=== PATIENT | male | born 1990 | race Caucasian/White ===

== ENCOUNTER 2018-03-30 10:05 | Emergency (ER) | payer OTHER, MEDICAID, SELFPAY ==
[2018-03-30 10:27] VITALS: BP 124/62; PULSE 88; RESP 12; TEMP 36.7; O2SAT 100
--- NOTE | 2018-03-30 10:42 | ED_ITS ---
HPI - Skin/Abscess/Foreign Bdy General Chief complaint: Skin/Abscess/Foreign Body Stated complaint: dr sent for possible infection in femoral artery Time Seen by Provider: 03/30/18 10:15 Source: patient Mode of arrival: ambulatory Limitations: no limitations History of Present Illness HPI narrative: Patient is a 27-year-old male who admits to being a IV drug abuser here for evaluation of a possible infection in his right groin. Patient states that he has been trying to quit heroin is also on methadone. He does state he uses daily heroin. He states that his last use was last evening. His last use of meth was yesterday. His last use of marijuana was this morning. He states that he has had skin infections in the past. He has been injecting himself in his right groin. The injection done overnight was in his left groin. Has pain in his right groin. No fevers. No urinary symptoms. Patient also states that he has been on Bactrim given to him by the methadone clinic. He states that when he takes Bactrim his genitals become very irritated. He states that he has been wearing gym shorts and now his genitals are very ? irritated ? Related Data Previous Rx's Medication Instructions Recorded alprazolam 1 mg PO TID #15 tab 04/27/16 clindamycin HCl 300 mg PO QID 10 Days #40 cap 03/30/18 quetiapine [Seroquel] 100 mg PO .QHS 10 Days tab 03/30/18 Allergies Allergy/AdvReac Type Severity Reaction Status Date / Time Sulfa (Sulfonamide Allergy Unknown Verified 03/30/18 10:47 Antibiotics) Review of Systems Constitutional Denies fatigue and Denies fever(s) Eyes Denies itchy eyes ENT Ears, Nose, Mouth, and Throat: Denies dizziness, Denies lip swelling and Denies throat swelling Cardiovascular Denies chest pain, Denies syncope and Denies dyspnea Respiratory Denies dyspnea Gastrointestinal Gastrointestinal: Denies abdominal pain, Denies diarrhea, Denies nausea and Denies vomiting Genitourinary Reports genital pain, Denies flank pain, Denies scrotal swelling and Denies testicular pain Musculoskeletal Denies myalgias and Denies arthralgias Integumentary/Breasts Comments: Redness and swelling to his right groin Redness to his left groin Neurologic Reports system reviewed and no additional complaints, except as docu, Denies confusion, Denies dizziness and Denies syncope Psychiatric Denies confusion Endocrine Denies fatigue Hematologic/Lymphatic Denies easy bleeding and Denies easy bruising Allergic/Immunologic Denies urticaria, Denies itchy eyes, Denies lip swelling and Denies throat swelling Exam Initial Vital Signs Initial Vital Signs: Vital Signs Temperature 98.1 F 03/30/18 10:27 Pulse Rate 88 03/30/18 10:27 Respiratory Rate 12 03/30/18 10:27 Blood Pressure 124/62 H 03/30/18 10:27 Pulse Oximetry 100 03/30/18 10:27 Const General: cooperative, well developed, well groomed and No acute distress Orientation: alert, awake and oriented x3 HENMT Head: normal to inspection, normocephalic and atraumatic Ears: hearing grossly normal bilaterally Nose: external nose normal Teeth and gingiva: other (Poor dentition, missing multiple teeth, consistent with meth use) Neck Other: Well-healed surgical scar anterior neck which she states was from a prior infection needing multiple operations Resp Effort & Inspection: normal respiratory effort and able to speak in complete sentences GI Inspection: normal to inspection and non-distended Palpation: soft, No firm and No tender Other: Patient with multiple superficial ulcerations on his genitals and glans sparing the testicles. Back/Spine/Pelvis Back: No CVA tenderness Skin Other: Patient with multiple skin lesions on all 4 extremities had multiple stages of healing consistent with his IV drug abuse. Patient has a 3 cm red swelling area of induration and erythema on his right groin. Has ecchymosis extending down the leg and also up to his waist line. No crepitus felt in the area Patient also with a 3 cm area of ecchymosis in his left groin where he injected himself overnight. Neuro General: alert, awake and oriented x3 Extrem General: normal to inspection and capillary refill normal Course Orders Ordered: ED Orders 03/30/18 10:42 CT pelvis w con Stat 03/30/18 11:33 Blood Culture Stat C-Reactive Protein Quant Stat Complete Blood Count AUTO DIFF Stat Comprehensive Metabolic Panel Stat Erythrocyte Sedimentation Rate Stat Lactate (Lactic Acid) Stat Lipase Stat Procalcitonin Stat Clindamycin Phosphate (Cleocin) 900 mg in 50 mls @ 50 mls/hr IV NOW ONE Stop: 03/30/18 13:50 Last Admin: 03/30/18 13:01 Dose: 50 mls/hr Discontinued Medications Sodium Chloride (Normal Saline 0.9%) 1,000 mls @ 1,000 mls/hr IV BOLUS ONE Stop: 03/30/18 11:41 Last Admin: 03/30/18 11:39 Dose: 1,000 mls/hr Ondansetron HCl (Zofran) 4 mg IV NOW ONE Stop: 03/30/18 11:38 Last Admin: 03/30/18 11:39 Dose: 4 mg Vital Signs - 8 hr 03/30/18 10:27 03/30/18 12:55 03/30/18 13:22 Temperature 98.1 F Pulse Rate 88 60 59 L Respiratory Rate 12 16 16 Blood Pressure 124/62 H Blood Pressure [Right Arm] 121/50 H 100/86 H Pulse Oximetry 100 98 98 MDM - Skin/Abscess/Foreign Bdy Lab Data Attestation: I reviewed the patient's lab results. Result diagrams: 03/30/18 11:33 03/30/18 11:33 Lab Results 03/30/18 03/30/18 03/30/18 Range/Units 11:33 11:33 11:33 WBC 9.0 (4.5-11.0) X10^3/uL RBC 4.70 (4.5-5.9) X10^6/uL Hgb 11.6 L (13.5-17.5) g/dL Hct 35.4 L (41-53) % MCV 75.5 L (80-100) fL MCH 24.6 L (26-34) PG MCHC 32.6 (30-36) % RDW 16.9 H (11.6-14.8) % Plt Count 305 (150-400) X10^3/uL Neut % (Auto) 77.6 H (50-75) % Lymph % (Auto) 10.9 L (25-40) % Sac % (Auto) 6.6 (3-14) % Eos % (Auto) 4.2 H (2-4) % Baso % (Auto) 0.7 (0-2) % Neut # (Auto) 7000 H (1964-9953) /uL ESR 29 H (0-15) MM/HR Sodium 142 (137-145) mmol/L Potassium 3.9 (3.4-5.1) mmol/L Chloride 100 (98-107) mmol/L Carbon Dioxide 27 (22-32) mmol/L BUN 18 (9-20) mg/dL Creatinine 0.90 (0.66-1.25) mg/dL Estimated GFR > 60.0 (>60) mL/min BUN/Creatinine Ratio 20.0 (6-22) Glucose 102 H (70-100) mg/dL Lactate (0.7-2.1) mmol/L Calcium 9.2 (8.4-10.2) mg/dL Total Bilirubin 0.8 (0.2-1.3) mg/dL AST 22 (17-59) IU/L ALT 21 (21-72) IU/L Alkaline Phosphatase 89 (38-126) U/L C-Reactive Protein 3.2 H (<1.0) mg/dL Total Protein 7.7 (6.3-8.2) g/dL Albumin 4.5 (3.5-5.0) g/dL Globulin 3.2 (1.7-4.1) g/dL Albumin/Globulin Ratio 1.4 (1.0-2.8) Lipase 38 (23-300) U/L Procalcitonin 0.22 (<0.5) ng/mL 03/30/18 Range/Units 11:33 WBC (4.5-11.0) X10^3/uL RBC (4.5-5.9) X10^6/uL Hgb (13.5-17.5) g/dL Hct (41-53) % MCV (80-100) fL MCH (26-34) PG MCHC (30-36) % RDW (11.6-14.8) % Plt Count (150-400) X10^3/uL Neut % (Auto) (50-75) % Lymph % (Auto) (25-40) % Sac % (Auto) (3-14) % Eos % (Auto) (2-4) % Baso % (Auto) (0-2) % Neut # (Auto) (5754-3596) /uL ESR (0-15) MM/HR Sodium (137-145) mmol/L Potassium (3.4-5.1) mmol/L Chloride (98-107) mmol/L Carbon Dioxide (22-32) mmol/L BUN (9-20) mg/dL Creatinine (0.66-1.25) mg/dL Estimated GFR (>60) mL/min BUN/Creatinine Ratio (6-22) Glucose (70-100) mg/dL Lactate 0.7 (0.7-2.1) mmol/L Calcium (8.4-10.2) mg/dL Total Bilirubin (0.2-1.3) mg/dL AST (17-59) IU/L ALT (21-72) IU/L Alkaline Phosphatase (38-126) U/L C-Reactive Protein (<1.0) mg/dL Total Protein (6.3-8.2) g/dL Albumin (3.5-5.0) g/dL Globulin (1.7-4.1) g/dL Albumin/Globulin Ratio (1.0-2.8) Lipase (23-300) U/L Procalcitonin (<0.5) ng/mL Imaging Data CT pelvis: Radiologist's impression: PROCEDURE: CT PELVIS W CON INDICATIONS: Right femoral infection concern for deep space infection TECHNIQUE: After the administration of intravenous contrast, 5 mm thick sections acquired from the iliac crests to the symphysis. 5 mm coronal and sagittal reformats were acquired. For radiation dose reduction, the following was used: automated exposure control, adjustment of mA and/or kV according to patient size. COMPARISON: [facility], CT, CT ABD PELVIS WO CON, 04/05/2016, 21:56. FINDINGS: Image quality: Excellent. Peritoneum and bowel: Bowel loops demonstrate normal wall thickness and caliber. No free fluid or air. Genitourinary: Bladder wall thickness is normal. Nodes and vessels: No iliac, pelvic, or inguinal adenopathy by size criteria. Iliac vessels demonstrate normal size and enhancement. Bones: No suspicious bony lesions. Miscellaneous: There is a tiny fat containing umbilical hernia. No inguinal hernias. There is skin thickening and subcutaneous stranding in the proximal right thigh consistent with cellulitis. Small right inguinal lymph nodes are likely reactive. There is tiny complex fluid collection in the right inguinal region measuring 1.3 x 3.4 cm, suspicious for phlegmon or small early abscess. No drainable fluid collection. IMPRESSION: 1. Right anterior thigh skin thickening and subcutaneous stranding consistent with cellulitis. 2. Small 1.3 x 2.4 cm complex fluid collection suspicious for phlegmon or small early abscess. No drainable fluid collection. 3. Reactive right internal lymph nodes are noted. Dictated by: Cortez Junior M.D. on 03/30/2018 at 12:36 MDM Narrative Medical decision making narrative: 27-year-old male admits to IV drug abuse with history and physical exam consistent with right-sided groin cellulitis/ abscess. Patient stop the Bactrim that he was placed on by the methadone clinic secondary to the changes in his genitals. These do not appear to be Marquez-Dimas or TEN. CT scan does not show any drainable abscess. Patient was given IV clindamycin here in the emergency department. Will send home with a prescription for clindamycin. Also refilled his nighttime sleep medicine. He does not have a primary doctor here in the area. He was informed that he needed to find a primary doctor. He was given return precautions. He expressed understanding and agreement with plan. Discharge Plan Departure Patient Disposition: Home, Self-Care Clinical Impression: Cellulitis, Drug abuse and dependence Instructions: DI for Cellulitis -- Adult, DI for Drug Abuse and Drug Addiction Activity Restrictions/Additional Instructions: Take all of the medications as instructed. I recommend that you may contact with a primary doctor here in the area for continued follow-up. I encourage you to continue to try to stop the drug use/abuse. Continue seeing the methadone clinic. Return to the emergency department for any new symptoms, worsening symptoms, worsening redness, worsening pain, or any other concerning symptoms Prescriptions: New clindamycin HCl 300 mg capsule 300 mg PO QID 10 Days Qty: 40 RF: 0 quetiapine [Seroquel] 100 mg tablet 100 mg PO .QHS 10 Days RF: 0 No Action alprazolam 1 MG tablet 1 mg PO TID Qty: 15 RF: 0
[2018-03-30] MEDS: ONDANSETRON 4 MG/2 ML INJ IV (11:39)
[2018-03-30] MEDS: SODIUM CHLORIDE 0.9% 1,000 ML 1000 ML IV (11:39)
[2018-03-30 11:43] LABS: Add Manual Diff / Slide Review NO; Basophils Percent Auto 0.7 % (0-2); Eosinophils Percent Auto 4.2 % (2-4); Hematocrit 35.4 % (41-53); Hemoglobin 11.6 g/dL (13.5-17.5); Lymphocytes Percent Auto 10.9 % (25-40); Mean Corpuscular HGB Conc 32.6 % (30-36); Mean Corpuscular Hemoglobin 24.6 PG (26-34); Mean Corpuscular Volume 75.5 fL (80-100); Monocytes Percent Auto 6.6 % (3-14); Neutrophils Absolute Auto 7000 /uL (3000-5900); Neutrophils Percent Auto 77.6 % (50-75); Platelet Count 305 X10^3/uL (150-400); Red Cell Distribution Width 16.9 % (11.6-14.8)
[2018-03-30 12:11] LABS: Lactate (Lactic Acid) 0.7 mmol/L (0.7-2.1)
[2018-03-30 12:13] LABS: Alanine Aminotransferase 21 IU/L (21-72); Albumin 4.5 g/dL (3.5-5.0); Albumin Globulin Ratio 1.4 (1.0-2.8); Alkaline Phosphatase 89 U/L (38-126); Aspartate Aminotransferase 22 IU/L (17-59); Bilirubin Total 0.8 mg/dL (0.2-1.3); Blood Urea Nitrogen 18 mg/dL (9-20); C-Reactive Protein Quant 3.2 mg/dL (<1.0); Calcium 9.2 mg/dL (8.4-10.2); Carbon Dioxide 27 mmol/L (22-32); Chloride 100 mmol/L (98-107); Estimated Glomerular Filt Rate > 60.0 mL/min (>60); Globulin 3.2 g/dL (1.7-4.1); Glucose 102 mg/dL (70-100); HEMOLYSIS < 15 (0-50); Lipase 38 U/L (23-300); Potassium 3.9 mmol/L (3.4-5.1); Sodium 142 mmol/L (137-145); Total Protein 7.7 g/dL (6.3-8.2)
[2018-03-30 12:26] LABS: Procalcitonin 0.22 ng/mL (<0.5)
[2018-03-30 12:46] LABS: Erythrocyte Sedimentation Rate 29 MM/HR (0-15)
[2018-03-30 12:55] VITALS: BP 121/50; PULSE 60; RESP 16; O2SAT 98
[2018-03-30] MEDS: CLINDAMYCIN 900 MG/50 ML PIGGYBACK 50 MG IV (13:01)
[2018-03-30 13:22] VITALS: BP 100/86; PULSE 59; RESP 16; O2SAT 98
[2018-03-30] MEDS: CLINDAMYCIN 150 MG CAPSULE 300 MG PO (14:18)
--- NOTE | 2018-03-30 14:20 | PC.NURSE ---
pt refusing to finish iv medications. dr. briseno aware and orders rec'd.
== END 2018-03-30 14:25 | disposition home or self-care (01) ==
PROVIDERS: Emergency Provider Emergency Medicine
DX: L03.314 Cellulitis of groin (principal); F11.10 Opioid abuse, uncomplicated
CPT/HCPCS: 36591; 72193; 80053; 83605; 83690; 84145; 85025; 85651; 86140; 87040; 96361; 96374; 96375; 99283; 99285; J2405; Q9967

== ENCOUNTER → 2018-06-05 13:49 | Outpatient (CLI) | payer OTHER, MEDICAID, SELFPAY ==
[2018-06-05 15:08] LABS: Add Manual Diff / Slide Review NO; Basophils Percent Auto 0.5 % (0-2); Eosinophils Percent Auto 5.7 % (2-4); Hematocrit 36.8 % (41-53); Hemoglobin 12.1 g/dL (13.5-17.5); Lymphocytes Percent Auto 13.7 % (25-40); Mean Corpuscular HGB Conc 32.8 % (30-36); Mean Corpuscular Hemoglobin 25.6 PG (26-34); Mean Corpuscular Volume 77.9 fL (80-100); Monocytes Percent Auto 4.9 % (3-14); Neutrophils Absolute Auto 6000 /uL (3000-5900); Neutrophils Percent Auto 75.2 % (50-75); Platelet Count 310 X10^3/uL (150-400); Red Blood Cell Count 4.73 X10^6/uL (4.5-5.9); Red Cell Distribution Width 17.5 % (11.6-14.8)
[2018-06-05 15:27] LABS: Alanine Aminotransferase 13 IU/L (21-72); Albumin 4.6 g/dL (3.5-5.0); Albumin Globulin Ratio 1.4 (1.0-2.8); Alkaline Phosphatase 80 U/L (38-126); Aspartate Aminotransferase 18 IU/L (17-59); Bilirubin Total 0.5 mg/dL (0.2-1.3); Blood Urea Nitrogen 18 mg/dL (9-20); Calcium 9.1 mg/dL (8.4-10.2); Carbon Dioxide 31 mmol/L (22-32); Chloride 104 mmol/L (98-107); Estimated Glomerular Filt Rate > 60.0 mL/min (>60); Globulin 3.3 g/dL (1.7-4.1); Glucose 81 mg/dL (70-100); HEMOLYSIS < 15 (0-50); Sodium 147 mmol/L (137-145); Total Protein 7.9 g/dL (6.3-8.2)
[2018-06-05 17:06] LABS: Hepatitis B Surface Antigen NEGATIVE s/c (NEGATIVE)
[2018-06-05 17:07] LABS: Hep C Virus Ab w/Reflex Quant REACTIVE s/c (NEGATIVE)
[2018-06-08 15:21] LABS: Hepatitis A Ab Total Nonreactive (Nonreactive); Hepatitis B Core IgM Nonreactive (Nonreactive)
[2018-06-08 15:23] LABS: Hepatitis B Surf Ab Qualitativ Nonreactive (Nonreactive)
[2018-06-11 11:52] LABS: Rapid Plasma Reagin NON-REACTIVE
== END ==
PROVIDERS: Visit Provider Physician Assistant Medical
DX: Z11.3 Encounter for screening for infections with a predominantly sexual mode of transmission (principal); Z11.51 Encounter for screening for human papillomavirus (HPV); Z13.228 Encounter for screening for other metabolic disorders
CPT/HCPCS: 36415; 80053; 85025; 86592; 86705; 86706; 86803; 87340; 87522

== ENCOUNTER 2018-08-20 09:55 | Emergency (ER) | payer OTHER, MEDICAID, SELFPAY ==
[2018-08-20 10:00] VITALS: BP 107/62; PULSE 64; RESP 20; TEMP 36.4; O2SAT 97; BMI 23.0
--- NOTE | 2018-08-20 11:30 | PC.NURSE ---
pt given dental block by provider pt appears in no acute distress at this time.
[2018-08-20] MEDS: AMOXICILLIN 250 MG CAPSULE 500 MG PO (11:38)
--- NOTE | 2018-08-20 11:40 | ED_ITS ---
HPI - Dental/Oral General Chief complaint: Dental/Oral Stated complaint: DENTAL BLOCK, WAS SENT OEVER BY Time Seen by Provider: 08/20/18 10:08 Source: patient Mode of arrival: ambulatory Limitations: no limitations History of Present Illness HPI Narrative: Patient complains of right mandibular dental pain the last several days. He has severe decay of his right mandibular teeth, with fracture. He states he is scheduled to see a dentist in [place] to have the teeth extracted. Patient states that the pain is electrical-feeling, shooting pain in the area of the affected teeth. Patient denies fever or facial swelling. Patient is in a drug rehab facility, and does not want any oral narcotics. He is requesting a dental block and antibiotics if possible. Severity scale (1-10): 9 Relieving factors: nothing Exacerbating factors: chewing, cold and heat Related Data Previous Rx's Medication Instructions Recorded amoxicillin 500 mg PO TID #20 cap 08/20/18 Review of Systems Review of Systems All systems reviewed & are unremarkable except as noted in HPI and below Constitutional Denies chills, Denies fever(s), Denies lethargy and Denies weakness Eyes Denies change in vision, Denies eye discharge, Denies irritation and Denies loss of vision ENT Ears, Nose, Mouth, and Throat: Denies change in voice, Reports dental pain, Denies neck pain and Denies sore throat Cardiovascular Denies chest pain, Denies irregular heart rhythm, Denies lightheadedness, Denies palpitations, Denies dyspnea, Denies dyspnea on exertion and Denies orthopnea Respiratory Denies cough, Denies dyspnea, Denies dyspnea on exertion and Denies wheezing Gastrointestinal Gastrointestinal: Denies abdominal pain, Denies change in bowel habits, Denies diarrhea, Denies nausea and Denies vomiting Genitourinary Denies hematuria, Denies flank pain, Denies urinary incontinence and Denies urinary urgency Musculoskeletal Denies neck pain Integumentary/Breasts Denies pruritus, Denies erythema, Denies rash and Denies wounds Neurologic Denies confusion, Denies loss of vision and Denies weakness Psychiatric Denies anxiety, Denies confusion, Denies depression, Denies homicidal ideation and Denies suicidal ideation Endocrine Denies palpitations Hematologic/Lymphatic Denies easy bruising Allergic/Immunologic Denies wheezing [facility] Medical History Dental caries (Acute) Polysubstance abuse (Acute) Surgical History No pertinent past surgical history (Acute) Social History Smoking Status: Current every day smoker substance use type: former substance user Exam Initial Vital Signs Initial Vital Signs: Vital Signs Temperature 97.6 F 08/20/18 10:00 Pulse Rate 64 08/20/18 10:00 Respiratory Rate 20 08/20/18 10:00 Blood Pressure 107/62 08/20/18 10:00 Pulse Oximetry 97 08/20/18 10:00 Const General: cooperative and well developed Nutritional Appearance: well nourished Orientation: alert, awake, oriented x3 and not confused HENMT Head: normocephalic and atraumatic Ears: external ears normal Nose: external nose normal and No nasal discharge Face and sinus: face symmetric and No dry mucous membranes Mouth: oral mucosae normal and moist mucous membranes Teeth and gingiva: abnormal dentition ( patient has severely decayed teeth throughout his entire mouth, with some teeth missing. He has multiple fractured and decayed teeth in the right mandibular area. No swelling of the gingiva or face.) Eyes General: appearance normal, both eyes and all related structures Eyelids: eyelids normal Conjunctivae: conjunctivae normal Sclera: sclerae normal Pupils: PERRL EOM: EOM intact bilaterally Neck Neck: normal visual inspection, trachea midline, No lymphadenopathy, No midline deformity and No JVD Lymphatic: No lymphedema Chest Chest: normal inspection of the chest Resp Effort & Inspection: normal respiratory effort, able to speak in complete sentences, no respiratory distress and no use of accessory muscles Auscultation: clear to auscultation bilaterally, no rales, no rhonchi and no wheezes Cardio Rate: regular rate Rhythm: regular rhythm Heart Sounds: no click, no gallops, no murmurs and no rubs Pulses: normal peripheral pulses GI Inspection: non-distended Palpation: soft, no hepatosplenomegaly, No guarding, No pulsatile mass and No tender Auscultation: normal bowel sounds Back/Spine/Pelvis Back: No CVA tenderness Cervical Spine: cervical ROM normal and No pain with cervical ROM Thoracic/Lumbar Spine: thoracic and lumbar spine normal to inspection Skin General: no rashes or lesions noted, No jaundice and No petechiae Neuro General: alert, oriented x3, gait normal and no focal motor deficits Speech: speech normal Extrem General: full ROM, no clubbing, cyanosis or edema, no pedal edema and no calf tenderness Psych Appearance: well kempt Mental Status: mental status grossly normal Attitude: cooperative Thought Content: normal and suicidality Judgment: judgment good Procedures Nerve Block Nerve Block 1: Local Anesthetic: bupivacaine 0.5% Side: right Intraoral Nerve Block: inferior alveolar Procedure Successful: Yes Patient Tolerated Procedure: Well Complications: none Course Course Narrative: Patient was given a dental block and started on amoxicillin. I have advised him to follow up, as planned, with his dentist. Orders Ordered: Discontinued Medications Amoxicillin (Trimox) 500 mg PO NOW ONE Stop: 08/20/18 11:35 Last Admin: 08/20/18 11:38 Dose: 500 mg Vital Signs - 8 hr 08/20/18 10:00 Temperature 97.6 F Pulse Rate 64 Respiratory Rate 20 Blood Pressure 107/62 Pulse Oximetry 97 [facility] - Dental/Oral Medical Records Attestation: I reviewed the patient's medical records. Discharge Plan Departure Patient Disposition: Home Clinical Impression: Toothache, Dental caries Discharge Date/Time: 08/20/18 11:44 Instructions: DI for Dental Pain Prescriptions: New amoxicillin 500 mg capsule 500 mg PO TID Qty: 20 RF: 0
[2018-08-20 11:43] VITALS: BP 117/61; PULSE 70; RESP 20; TEMP 35.9; O2SAT 99
== END 2018-08-20 11:44 | disposition home or self-care (01) ==
PROVIDERS: Emergency Provider Emergency Medicine
DX: K08.89 Other specified disorders of teeth and supporting structures (principal); K02.9 Dental caries, unspecified
CPT/HCPCS: 99282; 99283

== ENCOUNTER 2018-09-09 10:00 | Emergency (ER) | payer OTHER, MEDICAID, SELFPAY ==
[2018-09-09 10:08] VITALS: BP 108/57; PULSE 58; RESP 17; TEMP 36.6; O2SAT 100
--- NOTE | 2018-09-09 10:26 | ED_ITS ---
HPI - Dental/Oral General Chief complaint: Dental/Oral Stated complaint: TOOTH INFECTION Time Seen by Provider: 09/09/18 10:04 Source: patient Mode of arrival: ambulatory Limitations: no limitations History of Present Illness HPI Narrative: 28-year-old male, current smoker presents with chief complaint lower dental pain which is currently being pursue for surgical treatment at the [facility] oral surgery clinic. He has widespread poor dentition and presents to us an effort to receive another dental block to avoid the use of narcotics. He denies any facial swelling nor fever or chills. He is currently taking Kegiancarlo LEE Complaint: tooth pain 2 1. Onset (ago): week(s) Duration: constant Severity: moderate Relieving factors: NSAIDs Exacerbating factors: chewing Context: history of dental caries Treatment prior to arrival: none Related Data Home Medications Medication Instructions Recorded Confirmed cephalexin 500 mg PO BID 09/09/18 09/09/18 Previous Rx's Medication Instructions Recorded quetiapine [Seroquel] 100 mg PO ONCE HS #7 tab 09/09/18 Allergies Allergy/AdvReac Type Severity Reaction Status Date / Time Sulfa (Sulfonamide Allergy Unknown Verified 09/09/18 10:27 Antibiotics) Review of Systems Review of Systems All systems reviewed & are unremarkable except as noted in HPI and below Constitutional Denies chills, Denies fever(s), Denies lethargy and Denies weakness Eyes Denies change in vision, Denies eye discharge, Denies irritation and Denies loss of vision ENT Ears, Nose, Mouth, and Throat: Denies change in voice, Reports dental pain, Denies neck pain and Denies sore throat Cardiovascular Denies chest pain, Denies irregular heart rhythm, Denies lightheadedness, Denies palpitations, Denies dyspnea, Denies dyspnea on exertion and Denies orthopnea Respiratory Denies cough, Denies dyspnea, Denies dyspnea on exertion and Denies wheezing Gastrointestinal Gastrointestinal: Denies abdominal pain, Denies change in bowel habits, Denies diarrhea, Denies nausea and Denies vomiting Genitourinary Denies hematuria, Denies flank pain, Denies urinary incontinence and Denies urinary urgency Musculoskeletal Denies neck pain Integumentary/Breasts Denies pruritus, Denies erythema, Denies rash and Denies wounds Neurologic Denies confusion, Denies loss of vision and Denies weakness Psychiatric Denies anxiety, Denies confusion, Denies depression, Denies homicidal ideation and Denies suicidal ideation Endocrine Denies palpitations Hematologic/Lymphatic Denies easy bruising Allergic/Immunologic Denies wheezing COUNT INCLUDES THE [facility] Medical History Polysubstance abuse (Acute) Dental caries (Acute) Surgical History No pertinent past surgical history (Acute) Social History Smoking Status: Current every day smoker substance use type: former substance user Exam Narrative Exam Narrative: GEN: AOx3 and in mild distress, holding his R jaw EYES: Pupils are equal, round, and reactive to light and accommodation. Extraoccular muscles are intact bilaterally. There is no subconjunctival hemorrhage or exudate. DENTAL: Very poor widespread dentition, multiple dental caries and eroded teeth noted. No swelling or suggestion of abscess noted CHEST: Lungs are clear to auscultation bilaterally and free of wheezes, rales, or rhonchi. Heart rate is regular rhythm, there are no murmurs, clicks, rubs, or gallops. There is no chest wall tenderness. ABD: Abdomen is soft and nontender. There is no guarding or rebound. Bowel sounds are normal in all 4 quadrants. There is no mass or organomegaly. EXT: Full painless ROM of all extremities with no loss of sensation or strength. SKIN: Warm, pink, and dry. No erythema or rash Initial Vital Signs Initial Vital Signs: Vital Signs Temperature 97.8 F 09/09/18 10:08 Pulse Rate 58 L 09/09/18 10:08 Respiratory Rate 17 09/09/18 10:08 Blood Pressure 108/57 L 09/09/18 10:08 Pulse Oximetry 100 09/09/18 10:08 Procedures Nerve Block Nerve Block 1: Time out performed: Yes Local Anesthetic: lidocaine 1% and bupivacaine 0.5% Amount of anesthesia used (mL): 6 Side: right Intraoral Nerve Block: inferior alveolar Procedure Successful: Yes Patient Tolerated Procedure: Well Course Consultations Consultation #1: Dental has referred him to Oral Surgery, they have a backlog of patients. But did attempt to call the patient on 08/25 and left a message encouraging him to reach out to their airport refueling handler at [phone] Vital Signs - 8 hr 09/09/18 10:08 Temperature 97.8 F Pulse Rate 58 L Respiratory Rate 17 Blood Pressure 108/57 L Pulse Oximetry 100 Discharge Plan Departure Patient Disposition: Home Clinical Impression: Chronic dental pain Discharge Date/Time: 09/09/18 10:36 Interventions: ED Discharge Assessment Last Done: 09/09/18 10:35 Instructions: DI for Dental Pain Activity Restrictions/Additional Instructions: *You have been diagnosed with [ chronic dental pain ] *What to do: *Continue to take medications as directed *Follow up with your primary care provider in 2-3 days, call for an appointment. Let them know you were seen in the Emergency Department and that we ask that you be seen in follow up. I've given you contact for Dr. Winters whom is a local Oral Maxiollofacial Surgeon that may be able to help. I've been on the phone on hold with Dental, but have no new info yet. *Return to ER if you should have any new, worsening or concerning symptoms such as facial swelling, fever > 101F, or other bothersome symptoms Prescriptions: New quetiapine [Seroquel] 100 mg tablet 100 mg PO ONCE HS Qty: 7 RF: 0 No Action cephalexin 500 mg capsule 500 mg PO BID RF: 0 Referrals: Chalino Winters DMD [Physician] -
== END 2018-09-09 10:36 | disposition home or self-care (01) ==
PROVIDERS: Emergency Provider Emergency Medicine
DX: K08.89 Other specified disorders of teeth and supporting structures (principal); G89.29 Other chronic pain
CPT/HCPCS: 99282

== ENCOUNTER 2018-10-10 08:35 | Emergency (ER) | payer OTHER, MEDICAID, SELFPAY ==
[2018-10-10 08:40] VITALS: BP 156/84; PULSE 107; RESP 24; TEMP 37.4; O2SAT 98
--- NOTE | 2018-10-10 10:07 | ED_ITS ---
HPI - Skin/Abscess/Foreign Bdy General Chief complaint: Skin/Abscess/Foreign Body Stated complaint: ABCESS/INFECTION R FEMERAL ARTERY/MOUTH/JAW Time Seen by Provider: 10/10/18 09:26 Source: patient Mode of arrival: ambulatory Limitations: no limitations History of Present Illness HPI narrative: This is a 28-year-old male comes to the emergency department with complaint of abscess in his right groin. Patient states that he has been injecting IV drugs bilaterally for a long period of time. Last night sort of swelled up more and has become more painful and he is concerned about an abscess. He states that often he will get the skin looks a little necrotic and then eventually a wound will open up and it will drain pus. Patient states that he has also had a lot of dental issues. He is following with [facility] to try to be evaluated to have extensive dental work under anesthesia. He states that he continues to have significant caries he has been through 7 or 8 doses of antibiotics for them. And states that the pain continues to return. Patient is requesting a dental block for 1 particular area that hurts although he complains of pain throughout. He states he is on methadone, he has also been abusing recently despite being on the methadone. He denies any other medical history. He states the pain is pretty significant. Related Data Home Medications Medication Instructions Recorded Confirmed amoxicillin-pot clavulanate 1 tab PO BIDX10 10/10/18 10/10/18 amoxicillin-pot clavulanate 2 tab PO BIDX10 10/10/18 10/10/18 quetiapine [Seroquel] 100 mg PO BEDTIME 10/10/18 10/10/18 Previous Rx's Medication Instructions Recorded clindamycin HCl 300 mg PO QID #40 cap 10/10/18 diclofenac sodium [Voltaren] 2 gram TOP QID PRN #100 gram 10/10/18 Allergies Allergy/AdvReac Type Severity Reaction Status Date / Time Sulfa (Sulfonamide Allergy Unknown Verified 09/09/18 10:27 Antibiotics) Review of Systems ENT Ears, Nose, Mouth, and Throat: Reports system reviewed and no additional complaints, except as docu, Reports mouth pain and Reports other (Severe dental caries) Integumentary/Breasts Reports other (abscess right inguinal) [facility] Medical History Polysubstance abuse (Acute) Dental caries (Acute) Surgical History No pertinent past surgical history (Acute) Social History Smoking Status: Current every day smoker substance use type: IV drugs Exam Narrative Exam Narrative: GEN: Thin male, alert and oriented x 3, patient appears to be in mild distress. HEENT: Atraumatic, pupils are equal round reactive to light, extraocular movements are intact, nares are clear, TMs are clear with no fluid, there is no conjunctival pallor. Throat is clear without any exudates, erythema, tonsillar enlargement or uvular deviation, patient has severe dental caries affecting every tooth with multiple teeth that are not intact. There is no significant swelling of the gums. There is no fluctuant fluid collection. HEART: Regular rate and rhythm without murmur, clicks, rubs. LUNGS:Lungs clear to auscultation, no wheezes, rales, crackles, chest moves symmetrically ABD:bowel sounds normal, soft, non-tender, no guarding, rebound, rigidity, no masses noted, no hepatosplenomegaly :No CVA tenderness, patient has induration bilaterally in the inguinal creases although nontender on the left. On the right patient has tenderness. There is fullness and induration but no fluctuance. Patient does not have significant erythema but does have small area surrounding injection site which has some mild bruising. Patient has 2+ femoral pulses MSCL: Non-tender, no muscle atrophy, muscles strength 5/5 upper and lower extremities, full range of motion, normal gait NEURO:CN 2-12 intact, sensation normal, reflexes 2/4 upper and lower extremities. finger nose finger test normal, heel ca test normal, romberg normal Initial Vital Signs Initial Vital Signs: Vital Signs Temperature 99.4 F 10/10/18 08:40 Pulse Rate 107 H 10/10/18 08:40 Respiratory Rate 24 10/10/18 08:40 Blood Pressure 156/84 H 10/10/18 08:40 Pulse Oximetry 98 10/10/18 08:40 Procedures Nerve Block Nerve Block 1: Time out performed: Yes Local Anesthetic: lidocaine 1% and bupivacaine 0.25% Amount of anesthesia used (mL): 1.5 Side: right Intraoral Nerve Block: inferior alveolar Procedure Successful: Yes Patient Tolerated Procedure: Well Complications: none Additional Comments: Patient has improvement in pain with dental block. Course Vital Signs - 8 hr 10/10/18 08:40 Temperature 99.4 F Pulse Rate 107 H Respiratory Rate 24 Blood Pressure 156/84 H Pulse Oximetry 98 MDM - Skin/Abscess/Foreign Bdy Imaging Data Bedside US: My impression: On bedside ultrasound patient has swelling, sounding but no fluid collection noted. MDM Narrative Medical decision making narrative: Patient not given antibiotics for suspicion of early cellulitis secondary to IV drug abuse and potential abscess forming. No abscess is noted on ultrasound. Given rx for antibiotics are recommended to return if signs of forming abscess. No signs of vascular involvement on exam. I am able to visualize the site of injection also. He also has severe dental caries but is following with [facility]. Patient did have a dental block for the most painful area which was successful. Discharge Plan Departure Patient Disposition: Home Clinical Impression: Dental caries, Cellulitis of groin, right Discharge Date/Time: 10/10/18 10:27 Interventions: ED Discharge Assessment Last Done: 10/10/18 10:27 Instructions: DI for Skin Abscess Activity Restrictions/Additional Instructions: Follow-up in the next 3-5 days for recheck if symptoms are not improving. Continue warm compresses intermittently to the affected area. You may also use ice as needed. I would also recommend adding Tylenol 1000 mg every 8 hr and you can continue ibuprofen 600 mg every 6 hr together for additional pain relief. Take antibiotics until they are completely gone. Return to the ER for persistent fevers, rapidly worsening swelling, new weakness , numbness in your extremity, worsening redness, purulent discharge or other new or concerning symptoms. Also return if you're having any swelling of the back of his throat, tongue Um or difficulty breathing, stridor high-pitched wheezing. Prescriptions: New clindamycin HCl 300 mg capsule 300 mg PO QID Qty: 40 RF: 0 diclofenac sodium [Voltaren] 1 % gel 2 gram TOP QID PRN (Reason: pain) Qty: 100 RF: 0 No Action amoxicillin-pot clavulanate 875-125 mg tablet 1 tab PO BIDX10 RF: 0 amoxicillin-pot clavulanate 500-125 mg tablet 2 tab PO BIDX10 RF: 0 quetiapine [Seroquel] 100 mg tablet 100 mg PO BEDTIME RF: 0 Referrals: Vianey,Chalino, DMD [Physician] -
[2018-10-10 10:22] VITALS: BP 128/75; PULSE 76; RESP 20; O2SAT 98
== END 2018-10-10 10:27 | disposition home or self-care (01) ==
PROVIDERS: Emergency Provider Emergency Medicine
DX: L03.314 Cellulitis of groin (principal); K02.9 Dental caries, unspecified
CPT/HCPCS: 99282

== ENCOUNTER 2019-11-11 01:53 | Emergency (ER) | payer OTHER, MEDICAID, SELFPAY ==
[2019-11-11 02:27] VITALS: BP 128/63; PULSE 101; RESP 16; TEMP 36.9; O2SAT 98
--- NOTE | 2019-11-11 02:44 | DI.RAD.S_ITS ---
PROCEDURE: XR CHEST 1V INDICATIONS: altered mental status, periods of apnea TECHNIQUE: One view of the chest was acquired. COMPARISON: [facility], CR, XR CHEST 1 VIEW, 05/30/2019, 18:17. [facility], CR, XR CHEST 1 VIEW, 09/16/2019, 21:11. FINDINGS: Surgical changes and devices: None. Lungs and pleura: Mildly diminished lung volumes bilaterally. Minimal streaky bibasilar opacities consistent with atelectasis. No focal consolidations. No pleural effusions or pneumothorax. Mediastinum: Mediastinal contours appear normal. Heart size is normal. Bones and chest wall: No suspicious bony lesions. Overlying soft tissues appear unremarkable. IMPRESSION: Low lung volumes with minimal streaky bibasilar opacities most likely representing atelectasis. Otherwise, no acute cardiopulmonary process identified. Consider dedicated upright PA and lateral views of the chest when patient is able. Dictated by: Dante Hall M.D. on 11/11/2019 at 7:44 Approved by: Dante Hall M.D. on 11/11/2019 at 7:46
--- NOTE | 2019-11-11 02:44 | DI.CT.S_ITS ---
PROCEDURE: CT HEAD/BRAIN WO CON INDICATIONS: altered mental status TECHNIQUE: Noncontrast 4.5 mm thick angled axial sections acquired from the foramen magnum to the vertex, with coronal and sagittal reformats. For radiation dose reduction, the following was used: automated exposure control, adjustment of mA and/or kV according to patient size. COMPARISON: None. FINDINGS: Image quality: Excellent. CSF spaces: Basal cisterns are patent. No extra-axial fluid collections. The ventricles are symmetric in size and shape. Brain: No intracranial bleeds or masses. There is cerebral volume loss for age, with resultant ventricular and sulcal prominence. There are periventricular and deep white matter chronic small vessel ischemic changes. There is intracranial internal carotid artery atherosclerosis. Skull and face: Calvarium and visualized facial bones appear intact, without suspicious lesions. Sinuses: There is mucosal thickening of the left ethmoid and left maxillary sinuses. Remainder of the paranasal sinuses appear clear. Mastoid air cells are well-aerated. . IMPRESSION: 1. CT head without acute intracranial abnormalities. 2. Left ethmoid and left maxillary sinus disease. No significant discrepancy with the [facility] radiology preliminary report. Dictated by: Dante Hall M.D. on 11/11/2019 at 7:04 Approved by: Dante Hall M.D. on 11/11/2019 at 7:05
--- NOTE | 2019-11-11 02:44 | PC.NURSE ---
order for narcan IV, no IV in place. 1mg intra nasal verbal order received. Entered patient room and patient refused. Patient stated Im awake man, I'm just trying to sleep. Provider notified.
[2019-11-11 03:13] LABS: HCO3 ABG 26 mmol/L (22-26); PCO2 ABG 50.4 mmHg (35-45); PO2 ABG 94 mmHg (80-100); pH ABG 7.32 (7.35-7.45)
[2019-11-11 03:14] LABS: Fractionated Inspired Oxygen 21; Oxygen Saturation ABG 97 % (95-100); TCO2 ABG 28 mmol/L (21-31)
--- NOTE | 2019-11-11 03:14 | ED_ITS ---
HPI - Skin/Abscess/Foreign Bdy <Brandon Barry MD - Last Filed: 11/12/19 15:40> General Chief complaint: Skin/Abscess/Foreign Body Stated complaint: ABD Pain Time Seen by Provider: 11/11/19 07:32 Mode of arrival: EMS History of Present Illness HPI narrative: Chief complaint: Abdominal pain. HPI: The patient is a 29-year-old male who was brought into the emergency department by ambulance after he was found confused and disoriented somnolent and sleepy at the [facility] complaining of abdominal pain. At the time that I am seeing the he has an altered mental status and is excessively sleepy speaking in slurred monitoring speech and that I cannot understand. He is extremely weak and pale. The patient has a questionable history of polysubstance abuse including opiates. He admitted to the nurse that he skin pops. However when I was seeing the patient he would provide no information that I could understand. The patient periodically was apneic with very shallow respirations. I ordered 0.2 mg of Narcan to be administered and the patient woke up partially in absolutely refuse the Narcan. However the patient would lapse back into being excessively somnolent and sleepy. The patient was uncooperative. Periodically he would wake up in state and I am in adult and I am in control of my body and I can do as I want to. Related Data Home Medications Medication Instructions Recorded Confirmed amoxicillin-pot clavulanate 1 tab PO BIDX10 10/10/18 10/10/18 amoxicillin-pot clavulanate 2 tab PO BIDX10 10/10/18 10/10/18 quetiapine [Seroquel] 100 mg PO BEDTIME 10/10/18 10/10/18 Previous Rx's Medication Instructions Recorded clindamycin HCl 300 mg PO QID #40 cap 10/10/18 diclofenac sodium [Voltaren] 2 gram TOP QID PRN #100 gram 10/10/18 Allergies Allergy/AdvReac Type Severity Reaction Status Date / Time Sulfa (Sulfonamide Allergy Unknown Verified 09/09/18 10:27 Antibiotics) Review of Systems <Brandon Barry MD - Last Filed: 11/12/19 15:40> Review of Systems ROS Unobtainable: Unobtainable due to mental condition Patient History <Brandon Barry MD - Last Filed: 11/12/19 15:40> Medical History Dental caries (Acute) Polysubstance abuse (Acute) Surgical History No pertinent past surgical history (Acute) Social History Smoking Status: Current every day smoker substance use type: IV drugs Smoking Status: Current every day smoker alcohol intake frequency: 0-2 drinks per day Substance Use Type: marijuana, heroin and methamphetamine Exam <Brandon Barry MD - Last Filed: 11/12/19 15:40> Narrative Exam Narrative: PHYSICAL EXAM: CONSTITUTIONAL: Excessively somnolent, with apnea breathing and shallow respirations. The patient appears excessively pale and chronically ill. HEAD: AT/NC EENT: PERRL, pupils are small approximately 4 mm but not miotic. There is no conjunctival irritation or drainage. There was no epistaxis. No drainage from the ears, Tympanic membranes intact bilaterally, external auditory canals are partially occluded with cerumen. No epistaxis or nasal drainage Oral mucosa is moist and pink, posterior pharynx is without erythema or exudate. NECK: Supple, no obvious JVD, Trachea is midline without stridor, no palpable LN or masses. SPINE: The patient is unstable sitting up. There was no gross deformity, no palpable tenderness of the cervical, thoracic, lumbar or sacral spine. No CVA tenderness. THORAX: No deformity, retractions, chest wall tenderness, subcutaneous air or crepitice. LUNGS: Clear shallow respirations. HEART: Normal dstant heart tones, regular rhythm and rate with a soft systolic murmur. ABDOMEN: Soft, non-tender, normal bowel sounds without guarding, rebound, rigidity or palpable mass. The patient has a quarter-size scab and depression in his lateral left flank. There was no surrounding erythema or fluctuance. The patient has a similar lesion over his right lower abdomen that is mildly erythematous and tender. The patient also has areas of subcutaneous ecchymosis over his right and left lower abdomen. EXTREMITIES: No edema, cyanosis, deformity or tenderness. The patient has a large cutaneous lesions over his dorsal distal right arm in varying degrees of healing and desquamation. SKIN: No rash, bruising, petechiae or purpura. NEURO: There is no focal facial asymmetry., the patient is uncooperative. The patient is ambulatory but appears to be ataxic. Initial Vital Signs Initial Vital Signs: Vital Signs Temperature 98.4 F 11/11/19 02:27 Pulse Rate 101 H 11/11/19 02:27 Respiratory Rate 16 11/11/19 02:27 Blood Pressure 128/63 11/11/19 02:27 Pulse Oximetry 98 11/11/19 02:27 <Wisam Kan DO - Last Filed: 11/11/19 08:03> Initial Vital Signs Initial Vital Signs: Vital Signs Temperature 98.4 F 11/11/19 02:27 Pulse Rate 101 H 11/11/19 02:27 Respiratory Rate 16 11/11/19 02:27 Blood Pressure 128/63 11/11/19 02:27 Pulse Oximetry 98 11/11/19 02:27 Course <Brandon Barry MD - Last Filed: 11/12/19 15:40> Course Course Narrative: 0610 patient has visited a number of different [facility] and has a history of acute anxiety disorder'cellulitis of the right limb, chest pain, psychoactive substance abuse, opioid abuse, acute and subacute infective endocarditis, episodic cluster headaches not intractable infrequent headaches. The patient's CT scan when he was more cooperative revealed no intracranial abnormality. There was the possible presence of ethmoid and maxillary sinusitis. When I initially was evaluating the patient he was coloring completely unresponsive having shallow respirations and periods of apnea. He did not turn cyanotic during these episodes. However, I ordered 0.2 mg of Narcan to be administered. When the nurse attempted to administer the Narcan and inform him that we were going to administer Narcan he absolutely refused. Lab had a difficult time drawing blood on the patient and was unable to obtain a sample af ter which the patient absolutely refused any further blood draws. The patient was not cooperative. Orders Ordered: Discontinued Medications Sodium Chloride (Normal Saline 0.9%) 1,000 mls @ 1,000 mls/hr IV BOLUS ONE Stop: 11/11/19 03:43 Naloxone HCl (Narcan) 0.2 mg IV Q2MIN PRN PRN Reason: Opiate Reversal Ondansetron HCl (Zofran) 4 mg IV NOW ONE Stop: 11/11/19 02:45 Vital Signs Vital signs: Vital Signs - 8 hr 11/11/19 02:27 11/11/19 04:30 11/11/19 06:27 Temperature 98.4 F Pulse Rate 101 H 70 66 Respiratory Rate 16 12 12 Blood Pressure 128/63 Blood Pressure [Left Arm] 128/63 115/85 Pulse Oximetry 98 97 98 <Wisam Kan DO - Last Filed: 11/11/19 08:03> Orders Ordered: Discontinued Medications Sodium Chloride (Normal Saline 0.9%) 1,000 mls @ 1,000 mls/hr IV BOLUS ONE Stop: 11/11/19 03:43 Naloxone HCl (Narcan) 0.2 mg IV Q2MIN PRN PRN Reason: Opiate Reversal Ondansetron HCl (Zofran) 4 mg IV NOW ONE Stop: 11/11/19 02:45 Vital Signs Vital signs: Vital Signs - 8 hr 11/11/19 02:27 11/11/19 04:30 11/11/19 06:27 Temperature 98.4 F Pulse Rate 101 H 70 66 Respiratory Rate 16 12 12 Blood Pressure 128/63 Blood Pressure [Left Arm] 128/63 115/85 Pulse Oximetry 98 97 98 MDM - Skin/Abscess/Foreign Bdy <Brandon Barry MD - Last Filed: 11/12/19 15:40> Medical Records Attestation: I reviewed the patient's medical records. Lab Data Attestation: I reviewed the patient's lab results. Labs: Lab Results 11/11/19 Range/Units 03:01 ABG pH 7.32 L (7.35-7.45) ABG pCO2 50.4 H (35-45) mmHg ABG pO2 94 (80-100) mmHg ABG HCO3 26 (22-26) mmol/L ABG Total CO2 28 (21-31) mmol/L ABG O2 Saturation 97 (95-100) % ABG Base Excess 0.0 (-2-2) mmol/L FiO2 21 0300 the patient's arterial blood gases revealed a pH is 7.323, a pCO2 of 50.4, piece O2 of 94, oxygen saturation was 97%. <Wisam Kan DO - Last Filed: 11/11/19 08:03> Lab Data Labs: Lab Results 11/11/19 Range/Units 03:01 ABG pH 7.32 L (7.35-7.45) ABG pCO2 50.4 H (35-45) mmHg ABG pO2 94 (80-100) mmHg ABG HCO3 26 (22-26) mmol/L ABG Total CO2 28 (21-31) mmol/L ABG O2 Saturation 97 (95-100) % ABG Base Excess 0.0 (-2-2) mmol/L FiO2 21 MDM Narrative Medical decision making narrative: Dr kan: Received turned over from night provider. Patient was arousable. He stated that he knew that he was in the hospital. He stated that last evening he only took his Seroquel. Then he stated that he is trying to ?withdrawal ?from heroin abuse. He has been to [facility] past. He stated that he does not have a primary doctor. He has multiple times for medications to help him sleep for the next 2 days. He asked for Ativan. I told him that I was uncomfortable giving him Ativan given his situation from last evening and his somnolence. He asked if it was ?illegal ?for me to not prescribe him benzodiazepines since he has been on them in the past. Informed him that it is not a legal for me to not do this. He stated that it was my job to help him. I informed him that I was helping him by not prescribing more medications that could potentially be harmful. I did offer clonidine. He stated that his heart could not handle clonidine. He asked for more sleeping medications. I again informed him that I was uncomfortable given him these. I offered multiple times to give him other resources but the patient declined. He did tolerate oral intake. Discharge Plan Departure Patient Disposition: Home Clinical Impression: Polysubstance abuse, Dental decay Altered mental status Qualifiers: Altered mental status type: somnolence Qualified Code(s): R40.0 - Somnolence Discharge Date/Time: 11/11/19 09:12 Instructions: Substance Use Disorder Activity Restrictions/Additional Instructions: No driving for the next 24 hours. You can contact the health resources coordinator here at the hospital at [phone]. Another option is to contact the [facility] center. The social media executive there can be contacted at [phone]. Return to the emergency department for any new or worsening symptoms Prescriptions: No Action amoxicillin-pot clavulanate 875-125 mg tablet 1 tab PO BIDX10 RF: 0 amoxicillin-pot clavulanate 500-125 mg tablet 2 tab PO BIDX10 RF: 0 quetiapine [Seroquel] 100 mg tablet 100 mg PO BEDTIME RF: 0 clindamycin HCl 300 mg capsule 300 mg PO QID Qty: 40 RF: 0 diclofenac sodium [Voltaren] 1 % gel 2 gram TOP QID PRN (Reason: pain) Qty: 100 RF: 0
--- NOTE | 2019-11-11 03:28 | PC.NURSE ---
patient continues to talk with a slur like stutter. Patient asked if he has difficulty speaking or a speech impediment and he said yes. Patient continues to say that he not high and does not need narcan because he didnt take any drugs. Just seraquil.
--- NOTE | 2019-11-11 03:44 | PC.NURSE ---
Pt in bathroom, responds verbally to checks
--- NOTE | 2019-11-11 04:27 | PC.NURSE ---
lab attempted to draw blood. Was unable to get access. Patient refused further attempts. Patient attempted to have a bowel movment and spent several minutes in the batheroom. When entering the bathroom to see if the patient needed help it was noticed the patient was crying. Patient stated I'm just sad man, ya know how the mind is. Pateint assisted back to room and remains resting quietly on the stretcher with eyes closed. Patient on monitor.
[2019-11-11 04:30] VITALS: BP 128/63; PULSE 70; RESP 12; O2SAT 97
[2019-11-11 06:27] VITALS: BP 115/85; PULSE 66; RESP 12; O2SAT 98
--- NOTE | 2019-11-11 06:52 | PC.NURSE ---
patient continues to refuse care. Patient allowing staff to monitor him with pulse ox and cardiac monitoring. Patient refuses blood pressures.
--- NOTE | 2019-11-11 08:46 | PC.NURSE ---
pt wants breakfast and some refills/ breakfast given, grandfather called to pick pt up. aware of scripts
--- NOTE | 2019-11-11 09:12 | PC.NURSE ---
pt upset/ yelling in dept, spoke with him, tried to settle him down and give resources/ would not hear of it. cards given. went out of dept.
== END 2019-11-11 09:12 | disposition home or self-care (01) ==
PROVIDERS: Emergency Medicine; Emergency Provider Emergency Medicine
DX: F19.10 Other psychoactive substance abuse, uncomplicated (principal); K02.9 Dental caries, unspecified; R41.82 Altered mental status, unspecified; R10.9 Unspecified abdominal pain
CPT/HCPCS: 36600; 70450; 71045; 82805; 99283; 99284

== ENCOUNTER 2020-06-16 06:47 | Emergency (ER) | payer OTHER, MEDICAID, SELFPAY ==
[2020-06-16] VITALS (12 sets, daily range): BP systolic 100–135; BP diastolic 56–64; PULSE 70–100; RESP 20; TEMP 36.8; O2SAT 96–100; BMI 22.3
--- NOTE | 2020-06-16 07:10 | ED.SKABFB ---
HPI - Skin/Abscess/Foreign Bdy General Chief complaint: Skin/Abscess/Foreign Body Stated complaint: Abcess all over on both legs Time Seen by Provider: 06/16/20 06:49 Source: patient Mode of arrival: Ambulatory Limitations: no limitations History of Present Illness HPI narrative: 30-year-old gentleman with a history of polysubstance an IV drug use, anxiety and recently started methadone treatment for his opiate use disorder. Currently up to 50 mg of methadone and down to 0.4 g of IV heroin. Has very few IV access sites left and has typically used skin popping. He comes in today complaining that he needs antibiotics because multiple draining sores Ms. lower extremities. He describes no specific fevers, chills, chest pain, dyspnea, abdominal pain, headaches he does note that he has been more fatigued recently. He is essentially homeless, has a motor home but no license and place to park said motor home. He tells me he has never had endocarditis however records indicate that he has had both active and subacute endocarditis he has had multiple hospitalizations and complications from his IV drug use in the past. Related Data Home Medications Medication Instructions Recorded Confirmed amoxicillin-pot clavulanate 1 tab PO BIDX10 10/10/18 10/10/18 amoxicillin-pot clavulanate 2 tab PO BIDX10 10/10/18 10/10/18 quetiapine [Seroquel] 100 mg PO BEDTIME 10/10/18 10/10/18 Previous Rx's Medication Instructions Recorded clindamycin HCl 300 mg PO QID #40 cap 10/10/18 diclofenac sodium [Voltaren] 2 gram TOP QID PRN #100 gram 10/10/18 amoxicillin-pot clavulanate 1 tab PO BID #20 tab 06/16/20 clindamycin HCl 300 mg PO Q8H #30 cap 06/16/20 Allergies Allergy/AdvReac Type Severity Reaction Status Date / Time Sulfa (Sulfonamide Allergy Unknown Verified 09/09/18 10:27 Antibiotics) Review of Systems Review of Systems Narrative: Remainder of review of systems including constitutional, ENT, cardiovascular, respiratory, GI, , musculoskeletal, skin, neurologic and psychiatric systems reviewed and are unremarkable except as noted in HPI. Patient History Medical History Dental caries (Acute) Opioid use disorder (Acute) Polysubstance abuse (Acute) Surgical History H/O neck surgery (Acute) No pertinent past surgical history (Acute) Social History Smoking Status: Current every day smoker substance use type: IV drugs Smoking Status: Current every day smoker alcohol intake frequency: 0-2 drinks per day Substance Use Type: marijuana, heroin and methamphetamine Exam Narrative Exam Narrative: General: Appears generally unwell, pale, mildly diaphoretic, grayish tinge to his lips. Able to give a complete and coherent history. Appears quite fatigued HEENT: Dry mucous membranes, normal sclera with small nonreactive pupils,. Multiple dental caries Neck: supple, well-healed anterior scar across the entire neck Respiratory: Lungs scattered mild wheeze but no rales no rhonchi. Full and symmetrical air movement, no accessory muscle use able to speak in full sentences Cardiac: Tachycardic, occasional early beat, 2/6 systolic murmur and 2/6 diastolic murmur, no opening snaps no bruits no rubs Abdomen: Gynecomastia, Soft nontender, hypoactive bowel tones, no flank pain Skin: Pale, diaphoretic. Sequelae of IV drug use and complications all over his skin. Multiple areas of bruising. Deep track dominguez and skin scars from skin popping in the upper extremities. Multiple small open draining sores over both calves from injecting. Lower extremities both with erythema around multiple small draining sites consistent with confluent cellulitis but no deeper abscesses Neurologic: Grossly neurologically intact with no obvious asymmetries or abnormalities, sleepy but cooperative Extremities: Bilateral lower extremity edema 2+ related to infection. No splinter hemorrhages your appreciated Psych: Cooperative, anxious Initial Vital Signs Initial Vital Signs: Vital Signs Temperature 98.2 F 06/16/20 06:50 Pulse Rate 100 H 06/16/20 06:50 Respiratory Rate 20 06/16/20 06:50 Blood Pressure 135/64 06/16/20 06:50 Pulse Oximetry 97 06/16/20 06:50 Procedures [facility] [place] Name of Procedure: Ultrasound-guided IV, 18g 13/4 Side (if applicable): right Location: Internal jugular Technique/Description of procedure performed: Ultrasound guidance to access internal jugular for peripheral IV. Patient tolerated procedure: Well Complications: none Additional Comments: History of IV drug use and no other IV access including external jugular either side Course Orders Ordered: ED Orders 06/16/20 07:39 XR chest 1V Stat 06/16/20 08:30 Blood Culture Stat Complete Blood Count AUTO DIFF Stat Comprehensive Metabolic Panel Stat Lactate (Lactic Acid) Stat Procalcitonin Stat Troponin & CK Cardiac Panel Stat Vancomycin HCl/Dextrose (Vancomycin) 1,500 mg in 300 mls @ 200 mls/hr IV NOW ONE Stop: 06/16/20 11:14 Last Admin: 06/16/20 10:22 Dose: 200 mls/hr Documented by: ROMI Discontinued Medications Sodium Chloride (Normal Saline 0.9%) 1,000 mls @ 1,000 mls/hr IV BOLUS ONE Stop: 06/16/20 08:38 Last Admin: 06/16/20 08:37 Dose: 1,000 mls/hr Documented by: MARGARET Ceftriaxone Sodium/Dextrose (Rocephin) 2 gm in 50 mls @ 100 mls/hr IV NOW ONE Stop: 06/16/20 08:08 Last Infusion: 06/16/20 09:18 Dose: 0 mls/hr Documented by: Admin: 06/16/20 08:37 Dose: 100 mls/hr Documented by: MARGARET Lidocaine HCl (Xylocaine 1% (Pf)) 2 ml INJ NOW ONE Stop: 06/16/20 07:40 Last Admin: 06/16/20 07:53 Dose: 2 ml Documented by: MARGARET Lidocaine/Sodium Bicarbonate (Buffered Lidocaine 10 Ml Syr) 10 ml INJ NOW ONE Stop: 06/16/20 06:56 Last Admin: 06/16/20 07:54 Dose: 10 ml Documented by: MARGARET Methadone HCl (Methadone) 50 mg PO NOW ONE Stop: 06/16/20 08:46 Last Admin: 06/16/20 09:14 Dose: 50 mg Documented by: ROMI Vancomycin HCl (Vancomycin Per Pharmacy) 1 request MISC NOW ONE Stop: 06/16/20 07:40 Last Admin: 06/16/20 10:17 Dose: Not Given Documented by: ROMI Vital Signs Vital signs: Vital Signs - 8 hr 06/16/20 06:50 06/16/20 06:58 06/16/20 07:00 Temperature 98.2 F Pulse Rate 100 H 100 H 100 H Respiratory Rate 20 Blood Pressure 135/64 124/60 Pulse Oximetry 97 97 96 06/16/20 09:17 06/16/20 09:30 06/16/20 10:00 Temperature Pulse Rate 78 77 75 Respiratory Rate Blood Pressure 113/57 L Pulse Oximetry 100 97 98 06/16/20 10:23 06/16/20 10:30 Temperature Pulse Rate 76 81 Respiratory Rate Blood Pressure 115/59 L 114/59 L Pulse Oximetry 98 97 MDM - Skin/Abscess/Foreign Bdy Medical Records Attestation: I reviewed the patient's medical records. Medical records narrative: Phone call to [facility]. Patient is scheduled for 50 mg of methadone orally this morning. We let them know that he was in the emergency room and likely will be here for a number of hours. With care coordinated, will administer his daily dose of methadone in the emergency room today. Lab Data Attestation: I reviewed the patient's lab results. Result diagrams: 06/16/20 08:30 06/16/20 08:30 Labs: Lab Results 06/16/20 06/16/20 06/16/20 Range/Units 08:30 08:30 08:30 WBC 6.9 (4.5-11.0) X10^3/uL RBC 3.82 L (4.5-5.9) X10^6/uL Hgb 8.5 L (13.5-17.5) g/dL Hct 26.6 L (41-53) % MCV 69.8 L (80-100) fL MCH 22.4 L (26-34) PG MCHC 32.1 (30-36) % RDW 21.0 H (11.6-14.8) % Plt Count 328 (150-400) X10^3/uL Neut % (Auto) 68.6 (50-75) % Lymph % (Auto) 14.4 L (25-40) % Otero % (Auto) 9.1 (3-14) % Eos % (Auto) 7.2 H (2-4) % Baso % (Auto) 0.7 (0-2) % Neut # (Auto) 4800 (0227-2108) /uL Lymph # (Auto) 1000 L (5712-5599) /uL Otero # (Auto) 600 (0-900) /uL Eos # (Auto) 500 H (0-450) /uL Baso # (Auto) 100 (0-100) /uL RBC Morphology See below Hypochromasia 2+ H Anisocytosis 2+ H Microcytosis 1+ H Ovalocytes 1+ H Rouleaux 2+ H Sodium 141 (137-145) mmol/L Potassium 4.0 (3.4-5.1) mmol/L Chloride 105 (98-107) mmol/L Carbon Dioxide 29 (22-32) mmol/L BUN 17 (9-20) mg/dL Creatinine 0.86 (0.66-1.25) mg/dL Estimated GFR > 60.0 (>60) mL/min BUN/Creatinine Ratio 19.8 (6-22) Glucose 100 (70-100) mg/dL Lactate (0.7-2.1) mmol/L Calcium 8.4 (8.4-10.2) mg/dL Total Bilirubin 0.2 (0.2-1.3) mg/dL AST 24 (17-59) IU/L ALT 11 (<50) IU/L Alkaline Phosphatase 80 (38-126) U/L Total Creatine Kinase 267 H (55-170) U/L CK-MB (CK-2) 0.84 (<2.37) ng/mL CK-MB (CK-2) Rel Index 0.3 L (1.5-5.0) % Troponin I < 0.012 (0.01-0.034) ng/mL Total Protein 6.8 (6.3-8.2) g/dL Albumin 3.6 (3.5-5.0) g/dL Globulin 3.2 (1.7-4.1) g/dL Albumin/Globulin Ratio 1.1 (1.0-2.8) Procalcitonin < 0.05 (<0.5) ng/mL 06/16/20 Range/Units 08:30 WBC (4.5-11.0) X10^3/uL RBC (4.5-5.9) X10^6/uL Hgb (13.5-17.5) g/dL Hct (41-53) % MCV (80-100) fL MCH (26-34) PG MCHC (30-36) % RDW (11.6-14.8) % Plt Count (150-400) X10^3/uL Neut % (Auto) (50-75) % Lymph % (Auto) (25-40) % Otero % (Auto) (3-14) % Eos % (Auto) (2-4) % Baso % (Auto) (0-2) % Neut # (Auto) (5805-4476) /uL Lymph # (Auto) (6276-0892) /uL Otero # (Auto) (0-900) /uL Eos # (Auto) (0-450) /uL Baso # (Auto) (0-100) /uL RBC Morphology Hypochromasia Anisocytosis Microcytosis Ovalocytes Rouleaux Sodium (137-145) mmol/L Potassium (3.4-5.1) mmol/L Chloride (98-107) mmol/L Carbon Dioxide (22-32) mmol/L BUN (9-20) mg/dL Creatinine (0.66-1.25) mg/dL Estimated GFR (>60) mL/min BUN/Creatinine Ratio (6-22) Glucose (70-100) mg/dL Lactate 0.8 (0.7-2.1) mmol/L Calcium (8.4-10.2) mg/dL Total Bilirubin (0.2-1.3) mg/dL AST (17-59) IU/L ALT (<50) IU/L Alkaline Phosphatase (38-126) U/L Total Creatine Kinase (55-170) U/L CK-MB (CK-2) (<2.37) ng/mL CK-MB (CK-2) Rel Index (1.5-5.0) % Troponin I (0.01-0.034) ng/mL Total Protein (6.3-8.2) g/dL Albumin (3.5-5.0) g/dL Globulin (1.7-4.1) g/dL Albumin/Globulin Ratio (1.0-2.8) Procalcitonin (<0.5) ng/mL MDM Narrative Medical decision making narrative: 30-year-old gentleman with opiate use disorder currently homeless with multiple areas of draining wounds and cellulitis over both lower extremities. No evidence of sepsis. No evidence of acute endocarditis at this time. Was responded nicely to fluids initial antibiotics. Will discharge him home with amoxicillin and clindamycin double coverage. He was given his morning dose of methadone today as he missed his appointment due to this ER visit. Encourage him to continue follow-up with his rehab program. He has a notable anemia uncertain etiology without evidence of overt blood loss. Will suggest that he follow-up with the primary care physician and look into this a bit more. He is safe for home discharge Discharge Plan Departure Patient Disposition: Home Clinical Impression: Polysubstance abuse Cellulitis Qualifiers: Site of cellulitis: extremity Site of cellulitis of extremity: lower extremity Laterality: unspecified laterality Qualified Code(s): L03.119 - Cellulitis of unspecified part of limb Anemia Qualifiers: Anemia type: unspecified type Qualified Code(s): D64.9 - Anemia, unspecified Instructions: DI for Cellulitis -- Adult Activity Restrictions/Additional Instructions: Thank you for coming in today You do have multiple open areas of drainage but no obvious deeper abscesses that need to be drained. You have cellulitis of both legs related to each of these drainage sites. Your workup today some did not show signs of sepsis. In the emergency room you received a L of fluid, IV antibiotics (ceftriaxone and vancomycin), as well as blood work and chest x-rays. I am not finding other immediate infectious disease life-threatening abnormalities. Also incidentally noted on your blood work today was a fairly significant anemia. A low red blood cell count. At some point in the future you do need to talk to a primary care doctor about this and make sure it has improved. You do need to finish course of antibiotics. I am going to give you both Augmentin and clindamycin (you are allergic to sulfa so we will be using that one). Taking both of these together will decrease the chance that you develop resistance with the bacteria that are causing your problems. We did give you your daily dose of methadone today Please keep your follow-up appointments with [facility]. Please keep following up with the methadone and working on decreasing your heroin use completely. Given all of the skin issues that you are dealing with the absolute best option would be no heroin at all however if you are going to use, please consider smoking rather than injecting or skin-popping. I wish you the best Prescriptions: New amoxicillin-pot clavulanate 875-125 mg tablet 1 tab PO BID Qty: 20 RF: 0 clindamycin HCl 300 mg capsule 300 mg PO Q8H Qty: 30 RF: 0 No Action amoxicillin-pot clavulanate 875-125 mg tablet 1 tab PO BIDX10 RF: 0 amoxicillin-pot clavulanate 500-125 mg tablet 2 tab PO BIDX10 RF: 0 quetiapine [Seroquel] 100 mg tablet 100 mg PO BEDTIME RF: 0 clindamycin HCl 300 mg capsule 300 mg PO QID Qty: 40 RF: 0 diclofenac sodium [Voltaren] 1 % gel 2 gram TOP QID PRN (Reason: pain) Qty: 100 RF: 0
--- NOTE | 2020-06-16 07:39 | DI.RAD.S_ITS ---
PROCEDURE: XR CHEST 1V INDICATIONS: heart murmur TECHNIQUE: One view of the chest was acquired. COMPARISON: [facility], CR, XR CHEST 1V, 11/11/2019, 2:47. FINDINGS: Surgical changes and devices: None. Lungs and pleura: Lungs are clear. No pleural effusions or pneumothorax. Mediastinum: Mediastinal contours appear normal. Heart size is normal. Bones and chest wall: No suspicious bony lesions. Overlying soft tissues appear unremarkable. IMPRESSION: No cardiomegaly or CHF found. Dictated by: Kamaljit Goodrich M.D. on 06/16/2020 at 8:23 Approved by: Kamaljit Goodrich M.D. on 06/16/2020 at 8:23
[2020-06-16] MEDS: LIDOCAINE 1% (PF) 2 ML INJ (07:53)
[2020-06-16] MEDS: LIDO 1%/SOD BICARB 8.4% (10ML) 10 ML SYRINGE INJ (07:54)
[2020-06-16] MEDS: SODIUM CHLORIDE 0.9% 1,000 ML 1000 ML IV (08:37)
[2020-06-16] MEDS: CEFTRIAXONE 2 GM/50 ML FROZ.PIGGY IV (08:37)
[2020-06-16 08:41] LABS: Add Manual Diff / Slide Review NO; Basophils Absolute Auto 100 /uL (0-100); Basophils Percent Auto 0.7 % (0-2); Eosinophils Absolute Auto 500 /uL (0-450); Eosinophils Percent Auto 7.2 % (2-4); Hematocrit 26.6 % (41-53); Hemoglobin 8.5 g/dL (13.5-17.5); Lymphocytes Absolute Auto 1000 /uL (1100-4500); Lymphocytes Percent Auto 14.4 % (25-40); Mean Corpuscular HGB Conc 32.1 % (30-36); Mean Corpuscular Hemoglobin 22.4 PG (26-34); Mean Corpuscular Volume 69.8 fL (80-100); Monocytes Absolute Auto 600 /uL (0-900); Monocytes Percent Auto 9.1 % (3-14); Neutrophils Absolute Auto 4800 /uL (1500-7000); Neutrophils Percent Auto 68.6 % (50-75); Platelet Count 328 X10^3/uL (150-400); Red Blood Cell Count 3.82 X10^6/uL (4.5-5.9); White Blood Cell Count 6.9 X10^3/uL (4.5-11.0)
[2020-06-16 08:49] LABS: Lactate (Lactic Acid) 0.8 mmol/L (0.7-2.1)
[2020-06-16 08:50] LABS: Alanine Aminotransferase 11 IU/L (<50); Albumin 3.6 g/dL (3.5-5.0); Albumin Globulin Ratio 1.1 (1.0-2.8); Alkaline Phosphatase 80 U/L (38-126); Aspartate Aminotransferase 24 IU/L (17-59); BUN Creatinine Ratio 19.8 (6-22); Bilirubin Total 0.2 mg/dL (0.2-1.3); Blood Urea Nitrogen 17 mg/dL (9-20); Calcium 8.4 mg/dL (8.4-10.2); Carbon Dioxide 29 mmol/L (22-32); Chloride 105 mmol/L (98-107); Creatine Kinase 267 U/L (55-170); Estimated Glomerular Filt Rate > 60.0 mL/min (>60); Globulin 3.2 g/dL (1.7-4.1); Glucose 100 mg/dL (70-100); HEMOLYSIS < 15 (0-50); Sodium 141 mmol/L (137-145); Total Protein 6.8 g/dL (6.3-8.2)
[2020-06-16 09:02] LABS: Troponin I < 0.012 ng/mL (0.01-0.034)
[2020-06-16 09:05] LABS: Procalcitonin < 0.05 ng/mL (<0.5)
[2020-06-16 09:07] LABS: CKMB % Relative Index 0.3 % (1.5-5.0); Creatine Kinase MB 0.84 ng/mL (<2.37)
[2020-06-16] MEDS: METHADONE 10 MG TABLET 50 MG PO (09:14)
[2020-06-16] MEDS: VANCOMYCIN 1,500 MG/300 ML FROZ.PIGGY 200 MG IV (10:22)
[2020-06-16 10:52] LABS: Anisocytosis 2+; Hypochromasia 2+; Microcytosis 1+; Ovalocytes 1+
[2020-06-16 10:53] LABS: Rouleaux 2+
--- NOTE | 2020-06-16 11:12 | PC.NURSE ---
discharge instructions given the RN. Holding patient until antibiotics are finished and patient has eaten
== END 2020-06-16 12:24 | disposition home or self-care (01) ==
PROVIDERS: Emergency Provider Emergency Medicine
DX: F19.10 Other psychoactive substance abuse, uncomplicated (principal); L03.119 Cellulitis of unspecified part of limb; D64.9 Anemia, unspecified
CPT/HCPCS: 36415; 71045; 80053; 82550; 82553; 83605; 84145; 84484; 85025; 87040; 87077; 87147; 87205; 96365; 96366; 96367; 99284; J0696

== ENCOUNTER 2020-07-02 03:25 | Emergency (ER) | payer OTHER, MEDICAID, SELFPAY ==
--- NOTE | 2020-07-02 03:28 | ED.SKABFB ---
HPI - Skin/Abscess/Foreign Bdy General Chief complaint: Extremity Problem,Nontraumatic Stated complaint: both legs have abscesses Time Seen by Provider: 07/02/20 03:27 Source: patient Mode of arrival: Ambulatory Limitations: no limitations History of Present Illness HPI narrative: 30M daily smoker with a history of polysubstance an IV drug use, anxiety and recently started methadone treatment for his opiate use disorder presents with a recurrence of superficial abscesses on both of his legs. They have flared up over the few days. He has been squeezing them and has produced pus on all of them. He denies systemic findings such as fever, chills, nausea or vomiting. He is living in his RV currently and working with [facility] for his substance abuse. He is motivated to get better. Related Data Home Medications Medication Instructions Recorded Confirmed amoxicillin-pot clavulanate 1 tab PO BIDX10 10/10/18 10/10/18 amoxicillin-pot clavulanate 2 tab PO BIDX10 10/10/18 10/10/18 quetiapine [Seroquel] 100 mg PO BEDTIME 10/10/18 10/10/18 Previous Rx's Medication Instructions Recorded clindamycin HCl 300 mg PO QID #40 cap 10/10/18 diclofenac sodium [Voltaren] 2 gram TOP QID PRN #100 gram 10/10/18 amoxicillin-pot clavulanate 1 tab PO BID #20 tab 06/16/20 clindamycin HCl 300 mg PO Q8H #30 cap 06/16/20 doxycycline hyclate 100 mg PO BID #20 tab 07/02/20 Allergies Allergy/AdvReac Type Severity Reaction Status Date / Time Sulfa (Sulfonamide Allergy Unknown Verified 09/09/18 10:27 Antibiotics) Review of Systems Constitutional Constitutional: Denies chills, Denies fatigue, Denies fever(s), Denies frequent falls, Denies lethargy and Denies weakness Eyes Eyes: Denies change in vision, Denies eye discharge, Denies irritation and Denies loss of vision ENT Ears, Nose, Mouth, and Throat: Denies change in voice, Denies dizziness, Denies neck pain, Denies sore throat and Denies throat swelling Cardiovascular Cardiovascular: Denies chest pain, Denies irregular heart rhythm, Denies lightheadedness, Denies palpitations, Denies dyspnea, Denies dyspnea on exertion and Denies orthopnea Respiratory Respiratory: Denies cough, Denies dyspnea, Denies dyspnea on exertion and Denies wheezing Gastrointestinal Gastrointestinal: Denies abdominal pain, Denies change in bowel habits, Denies diarrhea, Denies nausea and Denies vomiting Musculoskeletal Musculoskeletal: Denies neck pain and Denies numbness Integumentary/Breasts Skin/Breast: Denies pruritus, Reports erythema, Denies rash, Reports skin pain, Reports sores and Reports wounds Neurologic Neurologic: Denies behavioral changes, Denies confusion, Denies dizziness, Denies frequent falls, Denies loss of vision, Denies numbness and Denies weakness Psychiatric Psychiatric: Denies anxiety, Denies behavioral changes, Denies confusion, Denies depression, Denies homicidal ideation and Denies suicidal ideation Endocrine Endocrine: Denies fatigue, Denies flushing and Denies palpitations Hematologic/Lymphatic Hematologic/Lymphatic: Denies easy bruising Allergic/Immunologic Allergic/Immunologic: Denies urticaria, Denies throat swelling and Denies wheezing Patient History Medical History Dental caries (Acute) Opioid use disorder (Acute) Polysubstance abuse (Acute) Surgical History H/O neck surgery (Acute) No pertinent past surgical history (Acute) Social History Smoking Status: Current every day smoker substance use type: IV drugs Smoking Status: Current every day smoker alcohol intake frequency: 0-2 drinks per day Substance Use Type: marijuana, heroin and methamphetamine Exam Narrative Exam Narrative: GEN: AOx3 and in mild distress EYES: Pupils are equal, round, and reactive to light and accommodation. Extraoccular muscles are intact bilaterally. There is no subconjunctival hemorrhage or exudate. CHEST: Lungs are clear to auscultation bilaterally and free of wheezes, rales, or rhonchi. Heart rate is regular rhythm, there are no murmurs, clicks, rubs, or gallops. There is no chest wall tenderness. ABD: Abdomen is soft and nontender. There is no guarding or rebound. Bowel sounds are normal in all 4 quadrants. There is no mass or organomegaly. EXT: Full painless ROM of all extremities with no loss of sensation or strength. SKIN: Multiple small superficial abscesses with surrounding erythema of bilateral lower extremities. No circumferential involvment, ongoing fluctuance. No findings to suggest any are appropriate for I&D Initial Vital Signs Initial Vital Signs: Vital Signs Temperature 97.6 F 07/02/20 03:36 Pulse Rate 92 H 07/02/20 03:36 Respiratory Rate 20 07/02/20 03:36 Blood Pressure 142/79 H 07/02/20 03:36 Pulse Oximetry 100 07/02/20 03:36 Course Orders Ordered: Discontinued Medications Doxycycline Hyclate (Vibramycin) 100 mg PO NOW ONE Stop: 07/02/20 03:33 Last Admin: 07/02/20 03:39 Dose: 100 mg Documented by: KGALLAG Lidocaine/Sodium Bicarbonate (Buffered Lidocaine 10 Ml Syr) 10 ml INJ NOW ONE Stop: 07/02/20 03:33 Vital Signs Vital signs: Vital Signs - 8 hr 07/02/20 03:36 Temperature 97.6 F Pulse Rate 92 H Respiratory Rate 20 Blood Pressure 142/79 H Pulse Oximetry 100 MDM - Skin/Abscess/Foreign Bdy MDM Narrative Medical decision making narrative: 30M with hx IVDA presents with draining abscesses. No indications currently for I&D. No evidence of sepsis or endocarditis. Patient given return precautions and has had his questions answered to his apparent satisfaction Discharge Plan Departure Patient Disposition: Home Clinical Impression: Multiple abscesses of both legs Discharge Date/Time: 07/02/20 03:49 Instructions: DI for Skin Abscess Activity Restrictions/Additional Instructions: *You have been diagnosed with [multiple spontaneous draining abscesses both legs] *What to do: *Take medications as directed *Follow up with your primary care provider in 2-3 days, call for an appointment. Let them know you were seen in the Emergency Department and that we ask that you be seen in follow up *Return to ER if you should have any new, worsening or concerning symptoms, such as [fever, shaking chills, chest pain, shortness of breath, persistent vomiting or other bothersome symptoms] Prescriptions: New doxycycline hyclate 100 mg tablet 100 mg PO BID Qty: 20 RF: 0 No Action amoxicillin-pot clavulanate 875-125 mg tablet 1 tab PO BIDX10 RF: 0 amoxicillin-pot clavulanate 500-125 mg tablet 2 tab PO BIDX10 RF: 0 quetiapine [Seroquel] 100 mg tablet 100 mg PO BEDTIME RF: 0 clindamycin HCl 300 mg capsule 300 mg PO QID Qty: 40 RF: 0 diclofenac sodium [Voltaren] 1 % gel 2 gram TOP QID PRN (Reason: pain) Qty: 100 RF: 0 amoxicillin-pot clavulanate 875-125 mg tablet 1 tab PO BID Qty: 20 RF: 0 clindamycin HCl 300 mg capsule 300 mg PO Q8H Qty: 30 RF: 0 Referrals: [facility] [Outside]
[2020-07-02 03:36] VITALS: BP 142/79; PULSE 92; RESP 20; TEMP 36.4; O2SAT 100
[2020-07-02] MEDS: DOXYCYCLINE HYCLATE 100 MG TABLET PO (03:39)
== END 2020-07-02 03:49 | disposition home or self-care (01) ==
PROVIDERS: Emergency Provider Emergency Medicine
DX: L02.416 Cutaneous abscess of left lower limb (principal)
CPT/HCPCS: 99283

== ENCOUNTER 2020-12-18 03:05 | Emergency (ER) | payer OTHER, MEDICAID, SELFPAY ==
[2020-12-18 03:10] VITALS: BP 133/81; PULSE 100; RESP 18; TEMP 37.2; O2SAT 100; BMI 24.4
--- NOTE | 2020-12-18 03:18 | ED_ITS ---
HPI - Extremity Problem <Nitin Farrar DO - Last Filed: 12/18/20 21:15> General Chief complaint: Skin/Abscess/Foreign Body Stated complaint: bad leg infection Time Seen by Provider: 12/18/20 03:06 Source: patient and family Mode of arrival: Wheelchair Limitations: no limitations History of Present Illness HPI Narrative: 30M smoker with history of IVDA (cocaine and heroin) presents with severe LLE infection, which has been present for some time, but is significantly worse today. He states he injected today at about noon, in his leg and now there is increased pain, swelling, and a darkening of the skin surrounding it. He denies fever or chills. He denies dizziness, weakness, chest pain or SOB. His last hospitalization was quite some time ago. He was seen in October at [facility] for similar problems. MD Complaint: extremity pain and extremity swelling Onset (ago): month(s) Pain Consistency: other Location: left Quality: stabbing and aching Radiation: none Relieving factors: nothing Exacerbating factors: weight bearing and walking Associated symptoms: denies other symptoms Context: other Related Data Home Medications Medication Instructions Recorded Confirmed amoxicillin-pot clavulanate 1 tab PO BIDX10 10/10/18 10/10/18 amoxicillin-pot clavulanate 2 tab PO BIDX10 10/10/18 10/10/18 quetiapine [Seroquel] 100 mg PO BEDTIME 10/10/18 10/10/18 Previous Rx's Medication Instructions Recorded clindamycin HCl 300 mg PO QID #40 cap 10/10/18 diclofenac sodium [Voltaren] 2 gram TOP QID PRN #100 gram 10/10/18 amoxicillin-pot clavulanate 1 tab PO BID #20 tab 06/16/20 clindamycin HCl 300 mg PO Q8H #30 cap 06/16/20 doxycycline hyclate 100 mg PO BID #20 tab 07/02/20 doxycycline hyclate 100 mg PO BID 7 Days #14 tab 12/18/20 lidocaine 1 applic TOPICAL QID PRN #15 g 12/18/20 Allergies Allergy/AdvReac Type Severity Reaction Status Date / Time Sulfa (Sulfonamide Allergy Unknown Verified 12/18/20 03:26 Antibiotics) Review of Systems <Nitin Farrar DO - Last Filed: 12/18/20 21:15> Constitutional Constitutional: Denies chills, Denies fatigue, Denies fever(s), Denies frequent falls, Denies lethargy and Denies weakness Eyes Eyes: Denies change in vision, Denies eye discharge, Denies irritation and De nies loss of vision ENT Ears, Nose, Mouth, and Throat: Denies change in voice, Denies dizziness, Denies neck pain, Denies sore throat and Denies throat swelling Cardiovascular Cardiovascular: Denies chest pain, Denies irregular heart rhythm, Denies lightheadedness, Denies palpitations, Denies dyspnea, Denies dyspnea on exertion and Denies orthopnea Respiratory Respiratory: Denies cough, Denies dyspnea, Denies dyspnea on exertion and Denies wheezing Gastrointestinal Gastrointestinal: Denies abdominal pain, Denies change in bowel habits, Denies diarrhea, Denies nausea and Denies vomiting Musculoskeletal Musculoskeletal: Denies neck pain and Denies numbness Integumentary/Breasts Skin/Breast: Denies pruritus, Reports erythema, Denies rash, Reports skin pain, Reports skin swelling, Reports skin ulcer, Reports sores and Reports wounds Neurologic Neurologic: Denies behavioral changes, Denies confusion, Denies dizziness, Denies frequent falls, Denies loss of vision, Denies numbness and Denies weakness Psychiatric Psychiatric: Denies anxiety, Denies behavioral changes, Denies confusion, Denies depression, Denies homicidal ideation and Denies suicidal ideation Endocrine Endocrine: Denies fatigue, Denies flushing and Denies palpitations Hematologic/Lymphatic Hematologic/Lymphatic: Denies easy bruising Allergic/Immunologic Allergic/Immunologic: Denies urticaria, Denies throat swelling and Denies wheezing Patient History <Nitin Farrar DO - Last Filed: 12/18/20 21:15> Medical History (Updated 12/18/20 @ 09:18 by Wisam Kan DO) Dental caries Opioid use disorder Polysubstance abuse Surgical History H/O neck surgery No pertinent past surgical history Social History Smoking Status: Current every day smoker substance use type: IV drugs Smoking Status: Current every day smoker alcohol intake frequency: 0-2 drinks per day Substance Use Type: marijuana, heroin and methamphetamine Exam <Nitin Helm, DO - Last Filed: 12/18/20 21:15> Narrative Exam Narrative: GENERAL: [30] year old patient appears stated age. Well nourished, a bit unkempt, clearly in pain. HEAD: Atraumatic. Normocephalic. EYES: Pupils equal round and reactive. Extraocular motions intact. No scleral icterus. No injection or drainage. ENT: Nose without bleeding, purulent drainage. Throat without erythema, to nsillar hypertrophy or exudate. Airway patent. NECK: Trachea midline. Non tender CARDIOVASCULAR: Regular rate and rhythm without murmurs, gallops, or rubs. RESPIRATORY: Clear to auscultation. Breath sounds equal bilaterally. No wheezes, rales, or rhonchi. GASTROINTESTINAL: Abdomen soft, non-tender, nondistended. EXTREMITIES: B/L LE edema BACK: Nontender without deformity or crepitance. No flank tenderness. NEURO: AOx3. SKIN: Skin of left leg with large amount of ulcerated and painful skin with surrounding erythema and ecchymotic skin. Initial Vital Signs Initial Vital Signs: Vital Signs Temperature 98.9 F 12/18/20 03:10 Pulse Rate 100 H 12/18/20 03:10 Respiratory Rate 18 12/18/20 03:10 Blood Pressure 133/81 12/18/20 03:10 Pulse Oximetry 100 12/18/20 03:10 <Wisam Kan, DO - Last Filed: 12/18/20 09:28> Initial Vital Signs Initial Vital Signs: Vital Signs Temperature 98.9 F 12/18/20 03:10 Pulse Rate 100 H 12/18/20 03:10 Respiratory Rate 18 12/18/20 03:10 Blood Pressure 133/81 12/18/20 03:10 Pulse Oximetry 100 12/18/20 03:10 Course <Nitin Farrar, DO - Last Filed: 12/18/20 21:15> Course Course Narrative: LRINEC Score for Necrotizing Soft Tissue Infection from [email or web address] on 12/18/2020 All calculations should be rechecked by clinician prior to use RESULT SUMMARY: 2 points If high suspicion for necrotizing fasciitis through clinical history and physical exam, do not calculate a LRINEC score and go straight to operative debridement. Consider IV antibiotics and serial labs to monitor response to treatment. Scores <6 were low risk ? but not no risk ? for necrotizing soft tissue infections. INPUTS: C-reactive protein ?> 0 = <15 mg/dL (150 mg/L) White blood cell count (x10,000/?L) ?> 0 = <15 Hemoglobin (g/dL) ?> 2 = <11 Sodium (mEq/L) ?> 0 = ?135 Creatinine ?> 0 = ?1.6 mg/dL (141 ?mol/L) Glucose ?> 0 = ?180 mg/dL (10 mmol/L) 0730 - patient signed out to Dr. Kan for final disposition. General Surgery en route for bedside evaluation Orders Ordered: Discontinued Medications Lactated Ringer's (Lactated Ringers) 1,000 mls @ 1,000 mls/hr IV BOLUS ONE Stop: 12/18/20 04:14 Last Infusion: 12/18/20 09:19 Dose: 0 mls/hr Documented by: Admin: 12/18/20 04:10 Dose: 1,000 mls/hr Documented by: RUFINA Piperacillin Sod/Tazobactam (Sod 4.5 gm/ Sodium Chloride) 100 mls @ 200 mls/hr IV NOW ONE Stop: 12/18/20 03:18 Last Infusion: 12/18/20 07:19 Dose: 0 mls/hr Documented by: Admin: 12/18/20 06:27 Dose: 200 mls/hr Documented by: RUFINA Vancomycin HCl/Dextrose (Vancomycin) 1,500 mg in 300 mls @ 200 mls/hr IV NOW ONE Stop: 12/18/20 04:46 Last Infusion: 12/18/20 09:19 Dose: 0 mls/hr Documented by: Admin: 12/18/20 07:16 Dose: 200 mls/hr Documented by: RUFINA Lorazepam (Lorazepam 2 Mg/Ml Inj) 1 mg IV NOW ONE Stop: 12/18/20 04:22 Last Admin: 12/18/20 04:27 Dose: 1 mg Documented by: SAMIR Consultations Consultation #1: General Surgery called upon receipt of CT findings. Dr. Yoder to see patient at bedside. Vital Signs Vital signs: Vital Signs - 8 hr 12/18/20 03:10 12/18/20 07:10 12/18/20 07:11 Temperature 98.9 F Pulse Rate 100 H 91 H 91 H Respiratory Rate 18 16 Blood Pressure 133/81 128/60 Pulse Oximetry 100 98 99 12/18/20 08:06 Temperature Pulse Rate 90 Respiratory Rate Blood Pressure 134/66 Pulse Oximetry 97 <Wisam Kan DO - Last Filed: 12/18/20 09:28> Orders Ordered: Discontinued Medications Lactated Ringer's (Lactated Ringers) 1,000 mls @ 1,000 mls/hr IV BOLUS ONE Stop: 12/18/20 04:14 Last Infusion: 12/18/20 09:19 Dose: 0 mls/hr Documented by: Admin: 12/18/20 04:10 Dose: 1,000 mls/hr Documented by: RUFINA Piperacillin Sod/Tazobactam (Sod 4.5 gm/ Sodium Chloride) 100 mls @ 200 mls/hr IV NOW ONE Stop: 12/18/20 03:18 Last Infusion: 12/18/20 07:19 Dose: 0 mls/hr Documented by: Admin: 12/18/20 06:27 Dose: 200 mls/hr Documented by: RUFINA Vancomycin HCl/Dextrose (Vancomycin) 1,500 mg in 300 mls @ 200 mls/hr IV NOW ONE Stop: 12/18/20 04:46 Last Infusion: 12/18/20 09:19 Dose: 0 mls/hr Documented by: Admin: 12/18/20 07:16 Dose: 200 mls/hr Documented by: RUFINA Lorazepam (Lorazepam 2 Mg/Ml Inj) 1 mg IV NOW ONE Stop: 12/18/20 04:22 Last Admin: 12/18/20 04:27 Dose: 1 mg Documented by: SAMIR Vital Signs Vital signs: Vital Signs - 8 hr 12/18/20 03:10 12/18/20 07:10 12/18/20 07:11 Temperature 98.9 F Pulse Rate 100 H 91 H 91 H Respiratory Rate 18 16 Blood Pressure 133/81 128/60 Pulse Oximetry 100 98 99 12/18/20 08:06 Temperature Pulse Rate 90 Respiratory Rate Blood Pressure 134/66 Pulse Oximetry 97 MDM - Extremity (Nontraumatic) <Nitin Farrar DO - Last Filed: 12/18/20 21:15> Lab Data Result diagrams: 12/18/20 04:05 12/18/20 04:05 Labs: Lab Results 12/18/20 12/18/20 12/18/20 Range/Units 04:05 04:05 04:05 WBC 9.3 (4.5-11.0) X10^3/uL RBC 4.28 L (4.5-5.9) X10^6/uL Hgb 8.8 L (13.5-17.5) g/dL Hct 28.3 L (41-53) % MCV 66.0 L (80-100) fL MCH 20.5 L (26-34) PG MCHC 31.1 (30-36) % RDW 17.4 H (11.6-14.8) % Plt Count 511 H (150-400) X10^3/uL Neut % (Auto) 76.1 H (50-75) % Lymph % (Auto) 12.8 L (25-40) % [place] % (Auto) 5.4 (3-14) % Eos % (Auto) 4.7 H (2-4) % Baso % (Auto) 1.0 (0-2) % Neut # (Auto) 7100 H (3325-9735) /uL Lymph # (Auto) 1200 (7326-9745) /uL [place] # (Auto) 500 (0-900) /uL Eos # (Auto) 400 (0-450) /uL Baso # (Auto) 100 (0-100) /uL RBC Morphology See below Hypochromasia 1+ H Anisocytosis 2+ H Microcytosis 2+ H Sodium 137 (137-145) mmol/L Potassium 3.8 (3.4-5.1) mmol/L Chloride 100 (98-107) mmol/L Carbon Dioxide 28 (22-32) mmol/L BUN 18 (9-20) mg/dL Creatinine 0.84 (0.66-1.25) mg/dL Estimated GFR > 60.0 (>60) mL/min BUN/Creatinine Ratio 21.4 (6-22) Glucose 135 H (70-100) mg/dL Lactate 0.8 (0.7-2.1) mmol/L Calcium 8.9 (8.4-10.2) mg/dL Total Bilirubin 0.3 (0.2-1.3) mg/dL AST 29 (17-59) IU/L ALT 14 (<50) IU/L Alkaline Phosphatase 114 (38-126) U/L C-Reactive Protein 4.1 H (<1.0) mg/dL Total Protein 8.5 H (6.3-8.2) g/dL Albumin 4.1 (3.5-5.0) g/dL Globulin 4.4 H (1.7-4.1) g/dL Albumin/Globulin Ratio 0.9 L (1.0-2.8) Urine RBC (0-5/HPF) Urine WBC (0-5/HPF) Ur Squamous Epith Cells (0-5/HPF) Amorphous Sediment Urine Bacteria (None) Hyaline Casts (None) Ur Culture Indicated? SARS-CoV-2 (PCR) (Negative) 12/18/20 12/18/20 Range/Units 04:15 07:30 WBC (4.5-11.0) X10^3/uL RBC (4.5-5.9) X10^6/uL Hgb (13.5-17.5) g/dL Hct (41-53) % MCV (80-100) fL MCH (26-34) PG MCHC (30-36) % RDW (11.6-14.8) % Plt Count (150-400) X10^3/uL Neut % (Auto) (50-75) % Lymph % (Auto) (25-40) % [place] % (Auto) (3-14) % Eos % (Auto) (2-4) % Baso % (Auto) (0-2) % Neut # (Auto) (8666-3255) /uL Lymph # (Auto) (2657-9383) /uL [place] # (Auto) (0-900) /uL Eos # (Auto) (0-450) /uL Baso # (Auto) (0-100) /uL RBC Morphology Hypochromasia Anisocytosis Microcytosis Sodium (137-145) mmol/L Potassium (3.4-5.1) mmol/L Chloride (98-107) mmol/L Carbon Dioxide (22-32) mmol/L BUN (9-20) mg/dL Creatinine (0.66-1.25) mg/dL Estimated GFR (>60) mL/min BUN/Creatinine Ratio (6-22) Glucose (70-100) mg/dL Lactate (0.7-2.1) mmol/L Calcium (8.4-10.2) mg/dL Total Bilirubin (0.2-1.3) mg/dL AST (17-59) IU/L ALT (<50) IU/L Alkaline Phosphatase (38-126) U/L C-Reactive Protein (<1.0) mg/dL Total Protein (6.3-8.2) g/dL Albumin (3.5-5.0) g/dL Globulin (1.7-4.1) g/dL Albumin/Globulin Ratio (1.0-2.8) Urine RBC None seen (0-5/HPF) Urine WBC 0-1/hpf (0-5/HPF) Ur Squamous Epith Cells 0-1 /hpf (0-5/HPF) Amorphous Sediment 2+ Urine Bacteria None seen (None) Hyaline Casts 0-1/lpf (None) Ur Culture Indicated? Cult not indicated SARS-CoV-2 (PCR) Negative (Negative) Urine Dip Bedside Urine Glucose Negative Bedside Urine Bilirubin - Negative Bedside Urine Ketone +/- 5 Urine Specific [place] 1.010 Bedside Urine Occult Blood - Negative Bedside Urine pH 7.0 Bedside Urine Protein +/- 15 Bedside Urine Urobilinogen - Negative Bedside Urine Nitrite - Negative Bedside Urine Leukocytes - Negative Esterase Imaging Data CT LE w/contrast: Radiologist's Impression: [address] [id number] Scan ReportSigned Patient: Zeus Landeros R#: [id number]: 1990Acct:[id number]/Sex: 30 / MDate of Service: 12/18/20Loc: EDAccession Number: [id number] Procedure: CT LE LT w con Ordering Provider: Nitin Farrar D.O. PROCEDURE: CT LE LT W CON INDICATIONS: pain, swelling, IV drug user, abscess TECHNIQUE: After the administration of intravenous contrast, 3 mm axial sections acquired of the left distal lower extremity, with coronal and sagittal reformats. COMPARISON: [facility], US, US VENOUS LOWER EXTREMITY DOPPLER BILATERAL, 09/16/2019, 22:29. FINDINGS: Image quality: Excellent. Bones: No fracture or dislocation. No periosteal reaction. No osseous erosion. No suspicious osseous lesion. Soft tissues: No loculated fluid collection. Long segment skin thickening a long the lateral distal lower extremity. Suspect skin ulceration in the midportion, (3/108). There is more diffuse subcutaneous edema. Skin calcifications at the anterior superior ca. No joint effusion. No vascular filling defect is identified. This does not exclude DVT. IMPRESSION: 1. No loculated fluid collection to suggest abscess is identified. 2. Marked soft tissue thickening most pronounced along the lateral aspect of the distal left lower extremity. Suspect skin ulceration in the midportion. 3. Diffuse subcutaneous edema. Consider further evaluation with lower extremity duplex ultrasound to exclude DVT. This report is concordant with the overnight preliminary interpretation. Dictated by: Fito Dos Santos M.D. on 12/18/2020 at 9:42 Approved by: Fito Dos Santos M.D. on 12/18/2020 at 9:51 <Wisam Kan DO - Last Filed: 12/18/20 09:28> Lab Data Labs: Lab Results 12/18/20 12/18/20 12/18/20 Range/Units 04:05 04:05 04:05 WBC 9.3 (4.5-11.0) X10^3/uL RBC 4.28 L (4.5-5.9) X10^6/uL Hgb 8.8 L (13.5-17.5) g/dL Hct 28.3 L (41-53) % MCV 66.0 L (80-100) fL MCH 20.5 L (26-34) PG MCHC 31.1 (30-36) % RDW 17.4 H (11.6-14.8) % Plt Count 511 H (150-400) X10^3/uL Neut % (Auto) 76.1 H (50-75) % Lymph % (Auto) 12.8 L (25-40) % [place] % (Auto) 5.4 (3-14) % Eos % (Auto) 4.7 H (2-4) % Baso % (Auto) 1.0 (0-2) % Neut # (Auto) 7100 H (3038-2293) /uL Lymph # (Auto) 1200 (5520-2319) /uL [place] # (Auto) 500 (0-900) /uL Eos # (Auto) 400 (0-450) /uL Baso # (Auto) 100 (0-100) /uL RBC Morphology See below Hypochromasia 1+ H Anisocytosis 2+ H Microcytosis 2+ H Sodium 137 (137-145) mmol/L Potassium 3.8 (3.4-5.1) mmol/L Chloride 100 (98-107) mmol/L Carbon Dioxide 28 (22-32) mmol/L BUN 18 (9-20) mg/dL Creatinine 0.84 (0.66-1.25) mg/dL Estimated GFR > 60.0 (>60) mL/min BUN/Creatinine Ratio 21.4 (6-22) Glucose 135 H (70-100) mg/dL Lactate 0.8 (0.7-2.1) mmol/L Calcium 8.9 (8.4-10.2) mg/dL Total Bilirubin 0.3 (0.2-1.3) mg/dL AST 29 (17-59) IU/L ALT 14 (<50) IU/L Alkaline Phosphatase 114 (38-126) U/L C-Reactive Protein 4.1 H (<1.0) mg/dL Total Protein 8.5 H (6.3-8.2) g/dL Albumin 4.1 (3.5-5.0) g/dL Globulin 4.4 H (1.7-4.1) g/dL Albumin/Globulin Ratio 0.9 L (1.0-2.8) Urine RBC (0-5/HPF) Urine WBC (0-5/HPF) Ur Squamous Epith Cells (0-5/HPF) Amorphous Sediment Urine Bacteria (None) Hyaline Casts (None) Ur Culture Indicated? SARS-CoV-2 (PCR) (Negative) 12/18/20 12/18/20 Range/Units 04:15 07:30 WBC (4.5-11.0) X10^3/uL RBC (4.5-5.9) X10^6/uL Hgb (13.5-17.5) g/dL Hct (41-53) % MCV (80-100) fL MCH (26-34) PG MCHC (30-36) % RDW (11.6-14.8) % Plt Count (150-400) X10^3/uL Neut % (Auto) (50-75) % Lymph % (Auto) (25-40) % [place] % (Auto) (3-14) % Eos % (Auto) (2-4) % Baso % (Auto) (0-2) % Neut # (Auto) (6870-4108) /uL Lymph # (Auto) (0551-6223) /uL [place] # (Auto) (0-900) /uL Eos # (Auto) (0-450) /uL Baso # (Auto) (0-100) /uL RBC Morphology Hypochromasia Anisocytosis Microcytosis Sodium (137-145) mmol/L Potassium (3.4-5.1) mmol/L Chloride (98-107) mmol/L Carbon Dioxide (22-32) mmol/L BUN (9-20) mg/dL Creatinine (0.66-1.25) mg/dL Estimated GFR (>60) mL/min BUN/Creatinine Ratio (6-22) Glucose (70-100) mg/dL Lactate (0.7-2.1) mmol/L Calcium (8.4-10.2) mg/dL Total Bilirubin (0.2-1.3) mg/dL AST (17-59) IU/L ALT (<50) IU/L Alkaline Phosphatase (38-126) U/L C-Reactive Protein (<1.0) mg/dL Total Protein (6.3-8.2) g/dL Albumin (3.5-5.0) g/dL Globulin (1.7-4.1) g/dL Albumin/Globulin Ratio (1.0-2.8) Urine RBC None seen (0-5/HPF) Urine WBC 0-1/hpf (0-5/HPF) Ur Squamous Epith Cells 0-1 /hpf (0-5/HPF) Amorphous Sediment 2+ Urine Bacteria None seen (None) Hyaline Casts 0-1/lpf (None) Ur Culture Indicated? Cult not indicated SARS-CoV-2 (PCR) Negative (Negative) Urine Dip Bedside Urine Glucose Negative Bedside Urine Bilirubin - Negative Bedside Urine Ketone +/- 5 Urine Specific [place] 1.010 Bedside Urine Occult Blood - Negative Bedside Urine pH 7.0 Bedside Urine Protein +/- 15 Bedside Urine Urobilinogen - Negative Bedside Urine Nitrite - Negative Bedside Urine Leukocytes - Negative Esterase Imaging Data CT LE: Radiologist's Impression: No fractures or bony destructive process. Diffuse subcutaneous edema with focal soft tissue fluid collections. Fascial planes are preserved. Vascular structures appear pain. MDM Narrative Medical decision making narrative: Dr kan: Received turned over from Dr. Farrar . Evaluated the patient's history and physical and labs and radiologic studies. Patient was seen in the emergency department by Dr. Yoder with General surgery who was going off shift so care was turned over to Dr. Castle who evaluated the patient in the emergency department. Plan was to do a bedside debridement however the patient became agitated. Stated that he was not given any pain medication. Informed him that topical pain medication was ordered for him however given his history of drug abuse that I was reluctant to give him any IV opioids. We did discuss other nonopioid treatments. The patient declined. Informed him that the general surgeon was going to provide local anesthesia. Patient stated that he did not want this. He stated that he wanted to go to [facility]. I informed him that [facility] would not provide any additional treatment than we can do here at this facility. He stated that he still wanted to leave. We discussed that he had infection in his leg that could potentially require further surgical intervention. Also could require IV antibiotics. Informed him that not getting this treatment could lead to worsening infection which could be threatening to his leg or also to his life. He expressed understanding of this. He is alert oriented x3. GCS of 15. In my opinion have the capacity to make decisions. This discussion was Had wit h nursing bedside and also General surgery at bedside. Patient did sign the against medical advice paperwork. He was given a prescription for antibiotics and topical lidocaine. His left arm midline IV was removed. He was instructed he could return to the emergency department at any point to continue his workup. He expressed understanding of this. Discharge Plan Departure Patient Disposition: Left Against Medical Advice Clinical Impression: Cellulitis, Drug abuse Instructions: DI for Cellulitis -- Adult, DI for Substance Use Disorder Activity Restrictions/Additional Instructions: Despite our conversations in the emergency department about the infection that you have in your leg and the need for surgical intervention you decided to leave against medical advice. By doing this you do take the responsibility of potential worsening of your infection which could lead to a loss of your leg or even potentially . I recommend that you take the antibiotics that you were given a prescription for as directed. You may return to the emergency department at any point to complete your workup and treatment Prescriptions: New doxycycline hyclate 100 mg tablet 100 mg PO BID 7 Days Qty: 14 RF: 0 lidocaine 4 % cream 1 applic topical QID PRN (Reason: pain) Qty: 15 RF: 0 No Action amoxicillin-pot clavulanate 875-125 mg tablet 1 tab PO BIDX10 RF: 0 amoxicillin-pot clavulanate 500-125 mg tablet 2 tab PO BIDX10 RF: 0 quetiapine [Seroquel] 100 mg tablet 100 mg PO BEDTIME RF: 0 clindamycin HCl 300 mg capsule 300 mg PO QID Qty: 40 RF: 0 diclofenac sodium [Voltaren] 1 % gel 2 gram TOP QID PRN (Reason: pain) Qty: 100 RF: 0 amoxicillin-pot clavulanate 875-125 mg tablet 1 tab PO BID Qty: 20 RF: 0 clindamycin HCl 300 mg capsule 300 mg PO Q8H Qty: 30 RF: 0 doxycycline hyclate 100 mg tablet 100 mg PO BID Qty: 20 RF: 0 Stand Alone Forms: Against Medical Advice
[2020-12-18] MEDS: LACTATED RINGERS 1,000 ML 1000 ML IV (04:10)
[2020-12-18 04:22] LABS: Add Manual Diff / Slide Review NO; Basophils Absolute Auto 100 /uL (0-100); Eosinophils Absolute Auto 400 /uL (0-450); Eosinophils Percent Auto 4.7 % (2-4); Hematocrit 28.3 % (41-53); Hemoglobin 8.8 g/dL (13.5-17.5); Lactate (Lactic Acid) 0.8 mmol/L (0.7-2.1); Lymphocytes Absolute Auto 1200 /uL (1100-4500); Lymphocytes Percent Auto 12.8 % (25-40); Mean Corpuscular HGB Conc 31.1 % (30-36); Mean Corpuscular Hemoglobin 20.5 PG (26-34); Monocytes Absolute Auto 500 /uL (0-900); Monocytes Percent Auto 5.4 % (3-14); Neutrophils Absolute Auto 7100 /uL (1500-7000); Neutrophils Percent Auto 76.1 % (50-75); Platelet Count 511 X10^3/uL (150-400); Red Blood Cell Count 4.28 X10^6/uL (4.5-5.9); Red Cell Distribution Width 17.4 % (11.6-14.8); White Blood Cell Count 9.3 X10^3/uL (4.5-11.0)
[2020-12-18 04:24] LABS: Alanine Aminotransferase 14 IU/L (<50); Albumin 4.1 g/dL (3.5-5.0); Albumin Globulin Ratio 0.9 (1.0-2.8); Alkaline Phosphatase 114 U/L (38-126); Aspartate Aminotransferase 29 IU/L (17-59); BUN Creatinine Ratio 21.4 (6-22); Bilirubin Total 0.3 mg/dL (0.2-1.3); Blood Urea Nitrogen 18 mg/dL (9-20); C-Reactive Protein Quant 4.1 mg/dL (<1.0); Calcium 8.9 mg/dL (8.4-10.2); Carbon Dioxide 28 mmol/L (22-32); Chloride 100 mmol/L (98-107); Estimated Glomerular Filt Rate > 60.0 mL/min (>60); Globulin 4.4 g/dL (1.7-4.1); Glucose 135 mg/dL (70-100); HEMOLYSIS < 15 (0-50); Potassium 3.8 mmol/L (3.4-5.1); Sodium 137 mmol/L (137-145); Total Protein 8.5 g/dL (6.3-8.2)
[2020-12-18] MEDS: LIDOCAINE 1% (PF) 2 ML (04:27)
[2020-12-18] MEDS: LORazepam 2 MG/ML INJ 1 MG IV (04:27)
[2020-12-18 04:40] LABS: Anisocytosis 2+; Hypochromasia 1+; Microcytosis 2+
--- NOTE | 2020-12-18 04:46 | DI.CT.S_ITS ---
PROCEDURE: CT LE LT W CON INDICATIONS: pain, swelling, IV drug user, abscess TECHNIQUE: After the administration of intravenous contrast, 3 mm axial sections acquired of the left distal lower extremity, with coronal and sagittal reformats. COMPARISON: [facility], US, US VENOUS LOWER EXTREMITY DOPPLER BILATERAL, 09/16/2019, 22:29. FINDINGS: Image quality: Excellent. Bones: No fracture or dislocation. No periosteal reaction. No osseous erosion. No suspicious osseous lesion. Soft tissues: No loculated fluid collection. Long segment skin thickening along the lateral distal lower extremity. Suspect skin ulceration in the midportion, (3/108). There is more diffuse subcutaneous edema. Skin calcifications at the anterior superior ca. No joint effusion. No vascular filling defect is identified. This does not exclude DVT. IMPRESSION: 1. No loculated fluid collection to suggest abscess is identified. 2. Marked soft tissue thickening most pronounced along the lateral aspect of the distal left lower extremity. Suspect skin ulceration in the midportion. 3. Diffuse subcutaneous edema. Consider further evaluation with lower extremity duplex ultrasound to exclude DVT. This report is concordant with the overnight preliminary interpretation. Dictated by: Fito Dos Santos M.D. on 12/18/2020 at 9:42 Approved by: Fito Dos Santos M.D. on 12/18/2020 at 9:51
[2020-12-18 05:16] LABS: COVID19 - ADMIT (NP swab/PCR) Negative (Negative)
[2020-12-18] MEDS: PIPERACILLIN/TAZO 4.5 GM in SODIUM CHLORIDE 0.9% 100 ML 200 ML IV (06:27)
[2020-12-18 07:10] VITALS: BP 128/60; PULSE 91; RESP 16; O2SAT 98
[2020-12-18 07:11] VITALS: PULSE 91; O2SAT 99
[2020-12-18] MEDS: VANCOMYCIN 1,500 MG/300 ML PIGGYBACK 200 MG IV (07:16)
[2020-12-18 07:40] LABS: Bacteria Urine None Seen; RBC Urine None Seen (0-5/HPF)
[2020-12-18 08:02] LABS: Amorphous Sediment Urine 2+; Squamous Epithelial Cell Urine 0-1 /HPF (0-5/HPF); WBC Urine 0-1/HPF (0-5/HPF)
[2020-12-18 08:03] LABS: Culture Indicated Urine Cult Not Indicated; Hyaline Casts Urine 0-1/LPF
[2020-12-18 08:06] VITALS: BP 134/66; PULSE 90; O2SAT 97
--- NOTE | 2020-12-18 09:21 | PC.NURSE ---
Dr Castle here to see patient, patient refused treatment for leg, saying he was going to go to [facility]. Said that he could get 14mg dilaudid every 2 hours for pain there and was upset we wouldn't do that. Pt was in restroom prior to discharge for 15 minutes. Pt kept saying he was ok when checking on him. Pt tried to leave with midline in place and was told it would need to be removed. Midline DC'd, suture removed holding it in place. Pt signed AMA paperwork and was verbally told he could lose his leg or even without medical treatment by Dr Kan. Pt did not complete vanco.
== END 2020-12-18 09:28 | disposition left against medical advice (07) ==
PROVIDERS: Emergency Medicine; Emergency Provider Emergency Medicine
DX: L03.116 Cellulitis of left lower limb (principal); F19.10 Other psychoactive substance abuse, uncomplicated; Z20.822 Contact with and (suspected) exposure to COVID-19
CPT/HCPCS: 36415; 73701; 80053; 81003; 81015; 83605; 85025; 86140; 87040; 87070; 87075; 87077; 87147; 87186; 87205; 87635; 96361; 96365; 96367; 96375; 99284; J2060; J2543; Q9967

== ENCOUNTER 2023-09-30 16:59 | Emergency (ER) | payer OTHER, MEDICAID, SELFPAY ==
--- NOTE | 2023-09-30 17:14 | PC.NURSE ---
Pt states not ready to come back yet. Needs to make a phone call and look for some of his stuff. Requested I leave him alone right now.
--- NOTE | 2023-09-30 17:51 | PC.NURSE ---
Pt still not ready to come back. Says he is using his phone.
--- NOTE | 2023-09-30 18:03 | PC.NURSE ---
Pt states he has a ride coming to get him. Offered a medical evaluation, pt declined. Pt was informed if he was not seeking medical care he would need to leave.
== END 2023-09-30 18:06 | disposition left against medical advice (07) ==
PROVIDERS: Emergency Provider Emergency Medicine
DX: R07.9 Chest pain, unspecified (principal)